=== PATIENT | male | born 1945 | race Caucasian/White ===

== ENCOUNTER 2017-08-17 11:31 | Outpatient (CLI) | payer MEDICARE ==
[2017-08-17 12:52] LABS: Hematocrit 41.8 % (42.0-52.0); Mean Platelet Volume 6.6 fL (7.4-10.4); Red Blood Cell (RBC) Count 4.39 mill/uL (4.70-6.10); White Blood Cell (WBC) Count 6.6 thou/uL (4.8-10.8)
[2017-08-17 12:56] LABS: PTT 27.6 SEC (22.9-36.1)
[2017-08-17 13:23] LABS: Anion Gap 16 mmol/L (10-20); BUN (Urea Nitrogen) 11 mg/dL (8.4-25.7); Calc. Creatinine Clearance 0 mL/min (70-130); Calcium 10.3 mg/dL (7.8-10.44); Carbon Dioxide 25 mmol/L (23-31); Chloride 101 mmol/L (98-107); Estimated GFR-MDRD 68
== END 2017-08-17 11:32 | disposition home or self-care (01) ==
LOC: LABBT 11:31
PROVIDERS: ATTEND Internal Medicine Cardiovascular Disease
DX: Z01.812 Encounter for preprocedural laboratory examination (principal)
CPT/HCPCS: 80048; 85027; 85610; 85730

== ENCOUNTER 2017-08-21 05:48 | Inpatient (IN) | payer MEDICARE ==
[~2017-08-21 05:48] MED LIST: Iopamidol 370 76% 100 ML VIAL ONE
[2017-08-21] MEDS ORDERED: Heparin 1000 UNIT/NS 500ML(OR) 1,000 ML ONE (07:40)
[2017-08-21] MEDS ORDERED: Diazepam 5 MG TAB ONE (08:00)
[2017-08-21] MEDS ORDERED: Midazolam HCl 2 mg/2 ml Vial ONE (08:15)
[2017-08-21] MEDS ORDERED: Fentanyl 100 MCG/2 ML VIAL ONE (08:15)
[2017-08-21] MEDS ORDERED: Nitroglycerin 2% Ointment 1 INCH/1 GM Packet ONE (08:28)
[2017-08-21] MEDS ORDERED: Acetaminophen/Codeine 30-300mg Tablet PO PRN ×2 (10:24)
[2017-08-21] MEDS ORDERED: traMADol HCl 50 MG TAB PO PRN (10:24)
[2017-08-21] MEDS ORDERED: Sodium Chloride 0.9% 1,000 ML IV SCH (10:24)
[2017-08-21] MEDS ORDERED: Nitroglycerin 0.4 MG TAB (25 Tab Bottle) SL PRN (10:24)
[2017-08-21] MEDS ORDERED: cloNIDine 0.1 MG TAB PO PRN (10:31)
[2017-08-21] MEDS ORDERED: Diazepam 5 MG TAB PO PRN (11:42)
[2017-08-21] MEDS ORDERED: Communication Order-Pharmacy FS SCH (11:42)
--- NOTE | 2017-08-21 14:36 | RAD ---
PORTABLE AP CHEST: Date: 08-21-17 History: Pre-operative evaluation prior to CABG. Comparison: None available. FINDINGS: Cardiac silhouette and pulmonary vasculature are within normal limits for portable technique of the darcie mirza. Lungs are clear. Osseous structures are intact. IMPRESSION: No acute cardiopulmonary process. POS: TAMRA
--- NOTE | 2017-08-21 15:15 | CON ---
DATE OF CONSULTATION: 08/21/2017 Chart reviewed/patient examined/films reviewed. HISTORY OF PRESENT ILLNESS: Mr. Judd is a 72-year-old gentleman admitted with angina. He underwen t cardiac catheterization revealing severe 3-vessel disease. Ejection fraction is approximately 55%. I have been asked to see him to discuss coronary artery bypass grafting. The potential targets inc lude LAD, OM, and distal right coronary artery. PAST MEDICAL HISTORY: 1. Coronary artery disease. 2. History of reflux status post hiatal hernia repair. 3. Hypertension. 4. Hyperlipidemia. PAST SURGICAL HISTORY: 1. Cholecystectomy. 2. Hiatal hernia repair. 3. Extensive skin cancer resection from the left side of his head at [facility]. HOME MEDICATIONS: 1. Aspirin 325 mg daily. 2. Catapres 0.1 mg daily. 3. Crestor 10 mg at bedtime. 4. Coreg 3.125 mg b.i.d. 5. Zantac 150 mg at bedtime. 6. Diovan HCT 1 q.a.m. 7. Nexium 40 mg q.a.m. 8. HCTZ 25 mg b.i.d. ALLERGIES: None. SOCIAL HISTORY: He does not use tobacco. He drinks approximately 4 beers a day - he prefers [employer]. He is and accompanied by his . REVIEW OF SYSTEMS: Ten point review of systems is performed and it is negative except as above. PHYSICAL EXAMINATION: GENERAL: This is a well-developed, well-nourished male in no acute distress. VITAL SIGNS: Height 5 feet 6 inches, weight 200 pounds, 2.06, heart rate is 80 and regular, bl ood pressure is 150/66. HEENT: Sclerae nonicteric. Pupils are equal and round bilaterally. NECK: Supple without bruit. CHEST: Clear bilaterally. HEART: Rhythm is regular without murmur. ABDOMEN: Soft, nontender. EXTREMITIES: No cyanosis, clubbing or edema. LUNGS: There are some varicosities over both calves. VASCULAR: Palpable carotid, radial, femoral, and dorsalis pedis pulses bilaterally. PSYCHIATRIC: Patient is awake, alert, oriented to person, place, and time. LABORATORY DATA: Of note, hemoglobin 14.1, platelet count is 223, potassium is 4.4, creatinine is 1. 4. PT/INR is 1.0. PTT is 27.6. ASSESSMENT AND PLAN: This is a pleasant 72-year-old gentleman with severe 3-vessel disease and prese rved left ventricular function. Risks, benefits, and options of coronary artery bypass grafting have been discussed. Planned for surgery tomorrow. The patient has been consented and signed.
[2017-08-21] MEDS ORDERED: Iopamidol 370 76% 100 ML VIAL ONE (17:28)
[2017-08-21] MEDS ORDERED: Famotidine 20 MG TAB PO SCH (21:00)
[2017-08-22] MEDS ORDERED: CEFAZOLIN/Water 2 GM/20 ML SYRINGE SLOW IVP SCH (04:00)
[2017-08-22] MEDS ORDERED: Clindamycin 2% Cream 40 gm Tube ONE (06:18)
[2017-08-22] MEDS ORDERED: Heparin 5,000 UNITS/ML VIAL ONE ×2 (06:25→07:04)
[2017-08-22] MEDS ORDERED: CEFAZOLIN/Water 2 GM/20 ML SYRINGE ONE (06:32)
[2017-08-22] MEDS ORDERED: Fentanyl 250 MCG/5 ML VIAL ONE ×2 (06:41)
[2017-08-22] MEDS ORDERED: Midazolam HCl 5 mg/5 ml Vial ONE (06:42)
[2017-08-22] MEDS ORDERED: Heparin 10,000 UNITS/1 ML VIAL 30,000 UNITS in Sodium Chloride 0.9% 1,000 ML FS SCH (06:45)
[2017-08-22] MEDS ORDERED: Aspirin 81 mg Enteric Coated Tablet PO SCH (09:00)
[2017-08-22] MEDS ORDERED: Carvedilol 3.125 MG TAB PO SCH (09:00)
[2017-08-22] MEDS ORDERED: Hydrochlorothiazide 25 MG TAB PO SCH ×2 (09:00)
[2017-08-22] MEDS ORDERED: Valsartan 80 MG TAB PO SCH (09:00)
[2017-08-22] MEDS ORDERED: Bisacodyl 5 MG TAB PO PRN (11:08)
[2017-08-22] MEDS ORDERED: Guaifenesin DM 100-10/5 ML UDCUP PO PRN (11:08)
[2017-08-22] MEDS ORDERED: Potassium Chloride 20 MEQ/100 ML PREMIX BAG IVPB PRN (11:08)
[2017-08-22] MEDS ORDERED: Promethazine HCl 25 MG/ML VIAL IM PRN (11:08)
[2017-08-22] MEDS ORDERED: HYDROcodone/Acetaminophen 5/325 mg Tablet PO PRN (11:08)
[2017-08-22] MEDS ORDERED: Magnesium 2 GM/NS 0.9% 100 ML 2 GM in Premix Bag 1 BAG IVPB SCH (11:08)
[2017-08-22] MEDS ORDERED: Post-Op Insulin Drip Protocol IVPB ONE (11:08)
[2017-08-22] MEDS ORDERED: Acetaminophen 325 MG TAB PO PRN (11:08)
[2017-08-22] MEDS ORDERED: Mag-Al 1200 mg/1200 mg/30 ML UDCUP PO PRN (11:08)
[2017-08-22] MEDS ORDERED: Norepinephrine 8 MG/0.9% NS 250 ML IVPB PRN (11:08)
[2017-08-22] MEDS ORDERED: hydrALAZINE 20 MG/ML VIAL SLOW IVP PRN (11:08)
[2017-08-22] MEDS ORDERED: Fentanyl 100 MCG/2 ML VIAL SLOW IVP PRN (11:08)
[2017-08-22] MEDS ORDERED: Nitroglycerin 50 MG/250 ML BOT 250 ML IVPB PRN (11:08)
[2017-08-22] MEDS ORDERED: Hetastarch 6% 500 ML 500 ML IVPB PRN (11:08)
[2017-08-22] MEDS ORDERED: Bisacodyl 10 MG SUPP PR PRN (11:08)
[2017-08-22] MEDS ORDERED: D5 1/2 NS w/20 mEq KCL 1,000 ML IV SCH (11:08)
--- NOTE | 2017-08-22 11:15 | OP ---
DATE OF PROCEDURE: 08/22/2017 PREOPERATIVE DIAGNOSES: Coronary artery mellitus/hypertension/hyperlipidemia. POSTOPERATIVE DIAGNOSES: Coronary artery mellitus/hypertension/hyperlipidemia. PROCEDURES: Coronary artery bypass grafting x3 - 1. Left internal mammary artery to 1.5 mm mid LAD - good conduit and small target. 2. Reverse saphenous vein to 1.0 mm OM - good conduit and small target. 3. Reverse saphenous vein to 1.5 mm RCA, good conduit with diffuse posterior plaquing of the target. SURGEONS: Finn Tirado M.D. and Akil Calderon M.D. ANESTHESIA: General endotracheal - Yohannes Gan M.D. PUMP TIME: 68 minutes. CROSS-CLAMP TIME: 33 minutes. LOW CORE TEMPERATURE: 32 degrees Celsius. RHIT: Destiney Mckeon. DRAINS: 24-[place] chest tubes x3. DRIPS: None. TRANSFUSIONS: None. DESCRIPTION OF PROCEDURE: After operative consent was obtained, the patient was brought to the operating room and placed in the supine position on the operating room table. Appropriate anesthetic monitor was placed and general endotracheal anesthesia induced. Chest, abdomen, and legs were prepped and draped in usual sterile fashion. Greater saphenous vein was harvested from the left lower extremity using an endoscopic technique from the thigh to upper calf. Wounds were irrigated and closed in layers. Median sternotomy was performed. Left internal mammary artery was harvested as a pedicle graft. The patient was systemically heparinized. Distal pedicle was divided and infused with papaverine. Thymic fat and pericardium were divided with electrocautery. Pericardial stay sutures were placed. Aortic and atrial cannulation was performed. After adequate heparinization, retrograde prime was performed. The patient was then placed on cardiopulmonary bypass. Distal targets were marked. Aortic cross-clamp was applied and antegrade sanguinous cardioplegic arrest obtained. One liter of antegrade cold [place] cardioplegia was given. Topical cold solution was used. Reversed saphenous vein was anastomosed to the distal RCA in end-to-side fashion with running 7-0 Prolene suture. Anastomosis was tested and was hemostatic. Reversed saphenous vein was anastomosed to the OM in end-to-side fashion with running 7-0 Prolene suture. Anastomosis was tested and was hemostatic. Mammary artery was brought through a window in the pericardium and anastomosed to the LAD in end-to-side fashion with running 7-0 Prolene suture. On release of the mammary clamp, there was good hooding in the anastomosis and good distal flow. Pedicle was secured with interrupted 6-0 Prolene suture. Cross-clamp was removed and partial occluding clamp placed. Saphenous vein to the right coronary was anastomosed to aortic root. Saphenous vein to the OM was anastomosed to the huertas of the right coronary graft. Partial occluding clamp was removed and grafts deaired. Anastomoses were inspected for hemostasis, which was good. The patient was warmed and weaned from cardiopulmonary bypass. After resumption of sinus rhythm, good hemodynamics, and temperature greater than 36.5, bypass was discontinued. Transfusions were given. Decanulation was performed and purse string sutures secured. Aortic site was reinforced with vein pledgeted 4-0 prolene. Venous cannulation site was reinforced with 4-0 prolene suture. Protamine was administered. Twenty-four [place] chest tubes were placed in the mediastinum x3. Vancomycin paste was placed on the sternal edges. After adequate hemostasis had been obtained, the sternum was closed with #7 wire. Sternum was treated with platelet-rich plasma and wires twisted. Wounds were irrigated, treated with platelet-poor plasma, and closed in multiple layers. Dermabond was applied to all skin incisions. The patient tolerated the procedure well, and was transferred to the intensive care unit in stable, but critical condition. SARI
[2017-08-22] MEDS ORDERED: Dextrose 50% Abboject 50 ML SYRINGE SLOW IVP PRN (11:24)
[2017-08-22] MEDS ORDERED: Dextrose 5% in Water 1,000 ML IV PRN (11:24)
[2017-08-22 11:25] LABS: Oxyhemoglobin 95.4 % (94.0-97.0); Sodium 137 mmol/L (135-148)
[2017-08-22 11:27] LABS: Mechanical Tidal Volume 500 ml; Mode PSIMV; Modified Allen's Test NOT DONE; Pressure Support 10 cmH2O; Vent YES
[2017-08-22 11:28] LABS: #Eosinphils 0.1 thou/uL (0.0-0.7); #Lymphocytes 1.5 thou/uL (1.20-3.40); #Monocytes 0.6 thou/uL (0.11-0.59); #Neutrophils 10.6 thou/uL (1.40-6.50); %Basophils 0.1 % (0.0-1.0); %Eosinophils 0.7 % (0.0-10.0); %Lymphocytes 11.8 % (21.0-51.0); Hematocrit 32.2 % (42.0-52.0); Mean Platelet Volume 6.5 fL (7.4-10.4); Red Blood Cell (RBC) Count 3.31 mill/uL (4.70-6.10); White Blood Cell (WBC) Count 12.9 thou/uL (4.8-10.8)
[2017-08-22 11:41] LABS: PTT 28.2 SEC (22.9-36.1); Prothrombin Time 16.7 SEC (12.0-14.7)
[2017-08-22] MEDS: Fentanyl 100 MCG/2 ML VIAL SLOW IVP PRN (11:41)
[2017-08-22] MEDS: Ketorolac Tromethamine 30 MG/ML VIAL IVP SCH ×3 (11:42→23:30)
[2017-08-22] MEDS: Ondansetron HCl/PF 4 MG/2 ML Vial IVP PRN (11:53)
[2017-08-22 11:54] LABS: Anion Gap 12 mmol/L (10-20); BUN (Urea Nitrogen) 8 mg/dL (8.4-25.7); Calc. Creatinine Clearance 98 mL/min (70-130); Calcium 8.4 mg/dL (7.8-10.44); Carbon Dioxide 19 mmol/L (23-31); Chloride 109 mmol/L (98-107); Estimated GFR-MDRD 89
--- NOTE | 2017-08-22 13:11 | RAD ---
ONE VIEW CHEST: HISTORY: Status post open heart surgery. COMPARISON: 08/21/2017 FINDINGS: Portable semi-upright chest demonstrates an endotracheal tube, a right-sided central venous catheter, a mediastinal drainage catheter, and a right-sided chest tube. Sternotomy wires are noted. Lung vo lumes are diminished. A left-sided chest tube is also noted. No pneumothorax. IMPRESSION: Findings compatible with recent open heart surgery. POS: TAMRA
[2017-08-22] MEDS: Insulin Regular 300 UNITS/3 ML VIAL SC PRN ×4 (13:39→23:57)
[2017-08-22] MEDS: CEFAZOLIN/Water 2 GM/20 ML SYRINGE SLOW IVP SCH ×2 (14:36→23:29)
[2017-08-22 14:39] LABS: Oxyhemoglobin 96.1 % (94.0-97.0); Sodium 138 mmol/L (135-148)
[2017-08-22 14:40] LABS: Modified Allen's Test NOT DONE; Pressure Support 10 cmH2O; Vent YES
[2017-08-22 14:41] LABS: Mode CPAP
[2017-08-22 16:58] LABS: Hematocrit 33.1 % (42.0-52.0)
[2017-08-22 17:04] VITALS: BMI 33.6
[2017-08-22] MEDS ORDERED: ePHEDrine/0.9% NaCl/PF SYRINGE 50 mg/10 ml ONE (18:27)
[2017-08-22] MEDS ORDERED: Sterile Water 10 ML VIAL ONE (18:27)
[2017-08-22] MEDS ORDERED: Aminocaproic Acid 5 GM/20 ML VIAL ONE (18:27)
[2017-08-22] MEDS ORDERED: Nitroglycerin 50 MG/250 ML BOT ONE (18:27)
[2017-08-22] MEDS ORDERED: PHENYLEPHRINE-NS 100 MCG/ML 10 ML SYRINGE ONE (18:27)
[2017-08-22] MEDS ORDERED: Protamine Sulfate 250 MG/25 ML VIAL ONE (18:27)
[2017-08-22] MEDS ORDERED: CEFAZOLIN 1 GM VIAL ONE (18:27)
[2017-08-22] MEDS ORDERED: Propofol 200 MG/20 ML VIAL ONE (18:27)
[2017-08-22] MEDS ORDERED: Lidocaine 1% PF 5 ML VIAL ONE (18:27)
[2017-08-22] MEDS ORDERED: Heparin 30,000 units/30 ml VIAL ONE (18:27)
[2017-08-22] MEDS: Famotidine/PF 20 mg/2ml Vial SLOW IVP SCH (20:42)
[2017-08-23] MEDS: Fentanyl 100 MCG/2 ML VIAL SLOW IVP PRN (02:30)
[2017-08-23] MEDS: Insulin Regular 300 UNITS/3 ML VIAL SC PRN ×2 (03:40→08:30)
[2017-08-23 04:28] LABS: #Lymphocytes 1.1 thou/uL (1.20-3.40); #Monocytes 0.7 thou/uL (0.11-0.59); #Neutrophils 7.4 thou/uL (1.40-6.50); %Basophils 0.1 % (0.0-1.0); %Eosinophils 0.2 % (0.0-10.0); %Lymphocytes 12.2 % (21.0-51.0); %Monocytes 7.5 % (0.0-10.0); Hematocrit 26.1 % (42.0-52.0); Red Blood Cell (RBC) Count 2.67 mill/uL (4.70-6.10); White Blood Cell (WBC) Count 9.3 thou/uL (4.8-10.8)
[2017-08-23 04:51] LABS: Anion Gap 11 mmol/L (10-20); BUN (Urea Nitrogen) 14 mg/dL (8.4-25.7); Calc. Creatinine Clearance 67 mL/min (70-130); Calcium 7.7 mg/dL (7.8-10.44); Carbon Dioxide 22 mmol/L (23-31); Chloride 109 mmol/L (98-107); Estimated GFR-MDRD 53
[2017-08-23] MEDS: Ketorolac Tromethamine 30 MG/ML VIAL IVP SCH ×4 (06:11→23:34)
[2017-08-23] MEDS: CEFAZOLIN/Water 2 GM/20 ML SYRINGE SLOW IVP SCH (06:12)
[2017-08-23] MEDS: Magnesium 2 GM/NS 0.9% 100 ML 2 GM in Premix Bag 1 BAG IVPB SCH (07:51)
[2017-08-23] MEDS: Famotidine/PF 20 mg/2ml Vial SLOW IVP SCH ×2 (07:51→21:07)
[2017-08-23] MEDS: Aspirin 325 MG TAB PO SCH (07:51)
[2017-08-23] MEDS: Ondansetron HCl/PF 4 MG/2 ML Vial IVP PRN (09:08)
[2017-08-23] MEDS: HYDROcodone/Acetaminophen 5/325 mg Tablet PO PRN ×4 (09:17→23:35)
[2017-08-23] MEDS ORDERED: Furosemide 40 MG/4 ML VIAL SLOW IVP SCH (09:30)
[2017-08-23] MEDS ORDERED: Furosemide 20 MG/2 ML VIAL SLOW IVP SCH (10:00)
--- NOTE | 2017-08-23 11:14 | RAD ---
PORTABLE AP CHEST: Date: 08/23/17 HISTORY: Post open heart surgery. COMPARISON: 08/22/17. FINDINGS: Endotracheal tube has been removed. The right-sided thoracostomy tube and mediastinal drain are stabl e in position. Right subclavian central venous catheter is unchanged in position. This exam is obtain ed at shallow depth inspiration which accentuates the cardiac silhouette and bronchovascular markings . There is atelectasis at the left lung base. Median sternotomy wires and findings likely related to CABG are again present. No other interval change. IMPRESSION: 1. Suboptimal depth of inspiration accentuating the bronchovascular markings and cardiac silhouette. There is probable atelectasis at the left lung base. 2. Removal of the endotracheal tube. Remaining lines and tubes are stable in position. POS: YESENIA
[2017-08-23] MEDS: Metoclopramide HCl 10 MG/2 ML VIAL IVP SCH ×2 (14:05→21:07)
[2017-08-23] MEDS: Carvedilol 3.125 MG TAB PO SCH (16:05)
[2017-08-24 04:44] LABS: #Eosinphils 0.1 thou/uL (0.0-0.7); #Lymphocytes 1.2 thou/uL (1.20-3.40); #Monocytes 0.9 thou/uL (0.11-0.59); #Neutrophils 9.3 thou/uL (1.40-6.50); %Basophils 0.2 % (0.0-1.0); %Eosinophils 0.7 % (0.0-10.0); %Lymphocytes 10.4 % (21.0-51.0); %Monocytes 7.8 % (0.0-10.0); Hematocrit 25.1 % (42.0-52.0); Mean Platelet Volume 6.8 fL (7.4-10.4); Red Blood Cell (RBC) Count 2.54 mill/uL (4.70-6.10); White Blood Cell (WBC) Count 11.4 thou/uL (4.8-10.8)
[2017-08-24 05:31] LABS: Anion Gap 9 mmol/L (10-20); BUN (Urea Nitrogen) 22 mg/dL (8.4-25.7); Calc. Creatinine Clearance 40 mL/min (70-130); Calcium 8.1 mg/dL (7.8-10.44); Carbon Dioxide 23 mmol/L (23-31); Chloride 106 mmol/L (98-107); Estimated GFR-MDRD 30
[2017-08-24] MEDS: HYDROcodone/Acetaminophen 5/325 mg Tablet PO PRN ×4 (06:06→23:51)
[2017-08-24] MEDS: Ketorolac Tromethamine 30 MG/ML VIAL IVP SCH (06:07)
[2017-08-24] MEDS: Metoclopramide HCl 10 MG/2 ML VIAL IVP SCH (06:07)
[2017-08-24] MEDS: Carvedilol 3.125 MG TAB PO SCH ×2 (07:23→16:52)
[2017-08-24] MEDS: Aspirin 325 MG TAB PO SCH (08:05)
[2017-08-24] MEDS: Famotidine/PF 20 mg/2ml Vial SLOW IVP SCH (08:05)
[2017-08-24] MEDS: Magnesium 2 GM/NS 0.9% 100 ML 2 GM in Premix Bag 1 BAG IVPB SCH (08:06)
--- NOTE | 2017-08-24 09:56 | RAD ---
UPRIGHT PORTABLE CHEST ONE VIEW: History: 72-year-old male for post op open heart follow up evaluation. FINDINGS: Post underlying sternotomy. Chest tubes and right central line are in place. No pneumothorax. Minimal fullness of the cardiomediastinal shadow. Poor inspiration with some increased markings in the bases , probably post op changes. No significant new process. IMPRESSION: Stable post-operative changes. No pneumothorax or other significant acute process. POS: TAMRA
[2017-08-24] MEDS ORDERED: Zolpidem Tartrate 5 MG TAB PO PRN (10:38)
[2017-08-24] MEDS ORDERED: Nitroglycerin 0.4 MG TAB 1 EACH SL PRN (10:38)
[2017-08-24] MEDS ORDERED: Guaifenesin DM 100-10/5 ML UDCUP PO PRN (10:38)
[2017-08-24] MEDS ORDERED: Acetaminophen 325 MG TAB PO PRN (10:38)
[2017-08-24] MEDS ORDERED: Mag-Al 1200 mg/1200 mg/30 ML UDCUP PO PRN (10:38)
[2017-08-24] MEDS ORDERED: Artificial Tears 18 DROP/0.9 ML EA EYE PRN (10:38)
[2017-08-24] MEDS ORDERED: diphenhydrAMINE 25 MG CAP PO PRN (10:38)
[2017-08-24] MEDS ORDERED: Bisacodyl 10 MG SUPP PR PRN (10:38)
[2017-08-24] MEDS ORDERED: Bisacodyl 5 MG TAB PO PRN (10:38)
[2017-08-24] MEDS ORDERED: Ondansetron HCl/PF 4 MG/2 ML Vial IVP PRN (10:38)
[2017-08-24] MEDS ORDERED: Mineral Oil ENEMA PR PRN (10:38)
[2017-08-24] MEDS ORDERED: Milk Of Magnesia 30 ML UDCUP PO PRN (10:38)
[2017-08-24] MEDS ORDERED: Fentanyl 100 MCG/2 ML VIAL SLOW IVP PRN (10:38)
--- NOTE | 2017-08-24 14:10 | PRG ---
DATE OF SERVICE: 08/24/2017 SUBJECTIVE: Mr. Judd is doing well. Chest tube has been discontinued. He has been sitting up in a chair. PHYSICAL EXAMINATION: VITAL SIGNS: Blood pressure 131/64, pulse 63, respirations 20. LUNGS: Clear to auscultation. HEART: Regular rate and rhythm. ABDOMEN: Soft, nontender and nondistended. EXTREMITIES: No edema. PERTINENT LABORATORY DATA: Creatinine 2.19, which is up from 1.32, hemoglobin 8.5. IMPRESSION: 1. Coronary artery disease status post bypass surgery. 2. Acute on chronic renal insufficiency. RECOMMENDATIONS: Chest tube is removed. We would recommend rehab. I have discontinued Toradol and decrease aspirin 81 q.a.m. We will repeat his creatinine in a.m. He is on beta-sonya therapy and statin treatment. We will continue.
[2017-08-24] MEDS ORDERED: Famotidine 20 MG TAB PO SCH (21:00)
[2017-08-25 06:21] LABS: Anion Gap 10 mmol/L (10-20); BUN (Urea Nitrogen) 29 mg/dL (8.4-25.7); Calc. Creatinine Clearance 47 mL/min (70-130); Calcium 8.3 mg/dL (7.8-10.44); Carbon Dioxide 22 mmol/L (23-31); Chloride 101 mmol/L (98-107); Estimated GFR-MDRD 35
[2017-08-25] MEDS: Aspirin 325 MG TAB PO SCH (08:25)
[2017-08-25] MEDS: Carvedilol 3.125 MG TAB PO SCH ×2 (08:27→16:08)
[2017-08-25] MEDS: Famotidine 20 MG TAB PO SCH (08:28)
[2017-08-25] MEDS: HYDROcodone/Acetaminophen 5/325 mg Tablet PO PRN ×2 (08:33→17:40)
[2017-08-25] MEDS ORDERED: Magnesium Citrate 300 ML BOT PO PRN (13:57)
--- NOTE | 2017-08-25 16:49 | PDOC.CTH ---
Cardiology Progress Note - Subjective he is doing well. No chest pain. Working with [employer] Has not had a BM yet but received a cathartic and feels it is coming soon. He has been passing gas. - Objective Vital Signs Temp Pulse Pulse Pulse Resp BP BP 08/25/17 12:49 60 53 L 125/75 132/60 08/25/17 11:34 99.3 F 54 L 17 08/25/17 09:14 64 64 108/57 L 134/65 08/25/17 08:22 98.8 F 63 20 BP Pulse Ox Pulse Ox Pulse Ox 08/25/17 12:49 100 98 08/25/17 11:34 126/64 98 08/25/17 09:14 100 100 08/25/17 08:22 134/58 L 97 Weight 206 lb 08/24/17 08/25/17 08/26/17 06:59 06:59 06:59 Intake Total 1211 2500 720 Output Total 1182 655 680 Balance 29 1845 40 - Physical Examination General/Neuro: alert & oriented x3, NAD Neck: no JVD present Lungs: CTA, unlabored respirations Heart: RRR Abdomen: NT/ND Extremities: + edema B (1+) - Telemetry Telemetry Rhythm: NSR - Labs Result Diagrams: 08/24/17 03:55 08/25/17 05:12 - Assessment/Plan 1. Multivessel CAD 2. S/p CABG 3. Acute kidney injury, improving. PLAN: - Continue to avoid hypotension and nephrotoxic agents. - Continue Aspirin 81 and statin. - Continue low dose BB, continue to hold on ACEI due to CATIA.
[2017-08-26] MEDS: HYDROcodone/Acetaminophen 5/325 mg Tablet PO PRN (03:39)
[2017-08-26 06:30] LABS: Anion Gap 9 mmol/L (10-20); BUN (Urea Nitrogen) 32 mg/dL (8.4-25.7); Calc. Creatinine Clearance 51 mL/min (70-130); Calcium 8.7 mg/dL (7.8-10.44); Carbon Dioxide 22 mmol/L (23-31); Chloride 102 mmol/L (98-107); Estimated GFR-MDRD 40
[2017-08-26 07:14] VITALS: TEMP 97.9
[2017-08-26] MEDS ORDERED: Furosemide 40 MG TAB PO SCH (07:30)
[2017-08-26] MEDS: Carvedilol 3.125 MG TAB PO SCH (08:02)
[2017-08-26] MEDS: Famotidine 20 MG TAB PO SCH (08:02)
--- NOTE | 2017-08-26 08:44 | EKG ---
Test Reason : POST CABG Blood Pressure : / mmHG Vent. Rate : 066 BPM Atrial Rate : 066 BPM P-R Int : 186 ms QRS Dur : 096 ms QT Int : 444 ms P-R-T Axes : 042 -44 060 degrees QTc Int : 465 ms Normal sinus rhythm Left axis deviation Inferior infarct , age undetermined Abnormal ECG No previous ECGs available Confirmed by Gerald PANDEY ([id number]) on 08/26/2017 8:43:30 AM Referred By: Doe MERCADO Confirmed By:Gerald PANDEY
[2017-08-26] MEDS ORDERED: Aspirin 81 mg Enteric Coated Tablet PO SCH (09:00)
[2017-08-26 11:02] VITALS: BP 119/64
--- NOTE | 2017-08-26 15:35 | DIS ---
DATE OF ADMISSION: 08/21/2017 DATE OF DISCHARGE: 08/26/2017 DIAGNOSES: 1. Coronary artery disease. 2. Hyperlipidemia. 3. Hypertension. 4. Gastroesophageal reflux disease, status post hiatal hernia repair. PROCEDURES: 1. Cardiac catheterization. 2. Coronary artery bypass grafting x3 -- 1 left internal mammary artery to LAD. 3. Reversed saphenous vein to OM. 4. Reversed saphenous vein to distal RCA. DESCRIPTION OF HOSPITAL STAY: Mr. Judd underwent an elective cardiac catheterization for angina. He was found to have severe 3-vessel disease with an ejection fraction of approximately 55%. He was taken to the operating room on 08/22/2017 and underwent coronary artery bypass grafting as above. Po stoperatively, he has done well. He has had no rhythm disturbances. At the time of discharge, he is ambulatory, tolerating a regular diet. He has mild edema. Incisions are clean and dry without evid ence of infection. DISCHARGE MEDICATIONS: 1. Aspirin 81 mg daily. 2. Crestor 20 mg at bedtime. 3. Zantac 150 mg at bedtime. 4. HCTZ 12.5 mg b.i.d. 5. Lasix 40 mg every day. 6. Coreg 3.125 mg b.i.d. Follow up is with me in 2 weeks, Dr. Azar in a month, and Dr. Anglin per his usual schedule.
[2017-08-28 09:46] LABS: Oxyhemoglobin 97.9 % (94.0-97.0); Sodium 139 mmol/L (135-148)
[2017-08-28 09:46] LABS: Base Excess -0.8 mEq/L (0 (+/- 2.5)); O2 Content (venous) 10.4 VOL% (12.5-17.5); pH (venous) 7.37 (7.35-7.45)
[2017-08-28 09:46] LABS: Oxyhemoglobin 98.1 % (94.0-97.0); Sodium 140 mmol/L (135-148)
[2017-08-28 09:48] LABS: Oxyhemoglobin 97.8 % (94.0-97.0); Sodium 136 mmol/L (135-148)
[2017-08-28 09:49] LABS: Sodium 135 mmol/L (135-148)
[2017-08-29 07:54] LABS: Mode OR ABG; Vent YES
[2017-08-29 07:54] LABS: Vent YES
[2017-08-29 07:55] LABS: Mode OR ABG; Vent YES
[2017-08-29 07:55] LABS: Mode OR ABG
[2017-08-29 07:56] LABS: Mode OR ABG; Vent YES
== END 2017-08-26 10:08 | disposition home or self-care (01) | DRG 234 ==
LOC: CCL 05:48 → 2NO 12:05 → CCU 08-22 07:28 → 2NO 08-24 13:23
PROVIDERS: ADMIT Internal Medicine Cardiovascular Disease; ATTEND Internal Medicine Cardiovascular Disease
PROC: 4A023N7 Measurement of Cardiac Sampling and Pressure, Left Heart, Percutaneous Approach (ICD-10-PCS; 2017-08-21)
PROC: B2111ZZ Fluoroscopy of Multiple Coronary Arteries using Low Osmolar Contrast (ICD-10-PCS; 2017-08-21)
PROC: B2151ZZ Fluoroscopy of Left Heart using Low Osmolar Contrast (ICD-10-PCS; 2017-08-21)
PROC: 02100Z9 Bypass Coronary Artery, One Artery from Left Internal Mammary, Open Approach (ICD-10-PCS; principal; 2017-08-22)
PROC: 021109W Bypass Coronary Artery, Two Arteries from Aorta with Autologous Venous Tissue, Open Approach (ICD-10-PCS; 2017-08-22)
PROC: 06BQ4ZZ Excision of Left Saphenous Vein, Percutaneous Endoscopic Approach (ICD-10-PCS; 2017-08-22)
PROC: 5A1221Z Performance of Cardiac Output, Continuous (ICD-10-PCS; 2017-08-22)
PROC: B24BZZ4 Ultrasonography of Heart with Aorta, Transesophageal (ICD-10-PCS; 2017-08-22)
DX: I25.10 Atherosclerotic heart disease of native coronary artery without angina pectoris (principal); N17.9 Acute kidney failure, unspecified; I10 Essential (primary) hypertension; E78.5 Hyperlipidemia, unspecified; K21.9 Gastro-esophageal reflux disease without esophagitis; R94.39 Abnormal result of other cardiovascular function study; E78.00 Pure hypercholesterolemia, unspecified; I73.9 Peripheral vascular disease, unspecified
CPT/HCPCS: 36415; 36416; 71010; 76942; 80048; 82805; 85025; 85610; 85730; 86850; 86900; 86901; 93005; 93010; 93458; 93798; 94002; 99152; 99153; A4216; C1769; J0690; J1642; J1644; J1815; J1885; J1940; J2001; J2250; J2405; J2704; J2720; J2765; J3010; J3475; J3480; J7050; P9045; S0017; S0028

== ENCOUNTER 2017-09-30 09:18 | Inpatient (IN) | payer MEDICARE ==
[2017-09-30] MEDS ORDERED: Ondansetron HCl/PF 4 MG/2 ML Vial ONE (10:10)
[2017-09-30 10:24] LABS: #Eosinphils 0.1 thou/uL (0.0-0.7); #Lymphocytes 1.2 thou/uL (1.20-3.40); #Monocytes 1.3 thou/uL (0.11-0.59); #Neutrophils 7.7 thou/uL (1.40-6.50); %Basophils 0.1 % (0.0-1.0); %Eosinophils 0.5 % (0.0-10.0); %Lymphocytes 11.9 % (21.0-51.0); %Monocytes 12.6 % (0.0-10.0); %Neutrophils 74.9 % (42.0-75.0); Hemoglobin 9.5 g/dL (14.0-18.0); Mean Corpuscular Hemoglobin 29.7 pg (27.0-31.0); Mean Corpuscular Volume 89.9 fl (80.0-94.0); Mean Platelet Volume 6.4 fL (7.4-10.4); Platelet Count 283 thou/uL (130-400); RBC Distribution Width 12.7 % (11.5-14.5); Red Blood Cell (RBC) Count 3.22 mill/uL (4.70-6.10); White Blood Cell (WBC) Count 10.3 thou/uL (4.8-10.8)
[2017-09-30 10:48] LABS: ALT (SGPT) 23 U/L (8-55); AST (SGOT) 35 U/L (5-34); Albumin 3.4 g/dL (3.4-4.8); Alkaline Phosphatase 76 U/L (40-150); Anion Gap 19 mmol/L (10-20); BUN (Urea Nitrogen) 36 mg/dL (8.4-25.7); Bilirubin, Total 0.6 mg/dL (0.2-1.2); CK (CPK) 128 U/L (30-200); Calc. Creatinine Clearance 0 mL/min (70-130); Calcium 9.7 mg/dL (7.8-10.44); Carbon Dioxide 30 mmol/L (23-31); Chloride 87 mmol/L (98-107); Estimated GFR-MDRD 36; Globulin 3.1 g/dL (2.4-3.5); Glucose 96 mg/dL (83-110); Lipase 15 U/L (8-78); Protein, Total 6.5 g/dL (5.8-8.1); Sodium 134 mmol/L (136-145)
[2017-09-30 10:51] LABS: Potassium 2.2 mmol/L (3.5-5.1)
[2017-09-30 10:53] LABS: CKMB 0.4 ng/mL (0-6.6); Troponin I 0.039 ng/mL (< 0.028)
[2017-09-30] MEDS ORDERED: D5 1/2 NS w/20 mEq KCL 1,000 ML IV SCH (11:00)
--- NOTE | 2017-09-30 11:40 | RAD ---
PORTABLE CHEST 1 VIEW: DATE: 09/30/17. TIME: 11:02 a.m. HISTORY: Chest pain. Nausea and vomiting. FINDINGS: Comparison is made with the exam of 08/24/17. There are changes of median sternotomy. The heart size is borderline. No confluent areas of consoli dation, pneumothorax, renaldo pulmonary edema, or pleural effusions are seen. IMPRESSION: No acute process. POS: H
[2017-09-30 14:23] LABS: Troponin I 0.052 ng/mL (< 0.028)
[2017-09-30] MEDS ORDERED: hydrALAZINE 20 MG/ML VIAL SLOW IVP PRN (15:39)
[2017-09-30] MEDS ORDERED: Acetaminophen 650 MG Suppository PR PRN (15:39)
[2017-09-30] MEDS ORDERED: Ondansetron HCl/PF 4 MG/2 ML Vial IVP PRN (15:39)
[2017-09-30] MEDS ORDERED: Metoclopramide HCl 10 MG/2 ML VIAL IVP SCH (15:45)
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
[2017-09-30 17:22] LABS: Troponin I 0.043 ng/mL (< 0.028)
[2017-09-30] MEDS: Potassium Chloride 40 MEQ in Sodium Chloride 0.45% 1,000 ML IV SCH (17:48)
[2017-09-30] MEDS: Carvedilol 3.125 MG TAB PO SCH (17:49)
[2017-09-30] MEDS: Famotidine 20 MG TAB PO SCH (21:27)
[2017-09-30] MEDS: Metoclopramide HCl 10 MG/2 ML VIAL IVP SCH (21:28)
[2017-09-30] MEDS: Acetaminophen 325 MG TAB PO PRN (21:28)
[2017-10-01] MEDS: Potassium Chloride 40 MEQ in Sodium Chloride 0.45% 1,000 ML IV SCH ×3 (03:32→23:29)
[2017-10-01] MEDS: Metoclopramide HCl 10 MG/2 ML VIAL IVP SCH ×3 (05:30→20:44)
[2017-10-01 05:44] LABS: #Eosinphils 0.1 thou/uL (0.0-0.7); #Lymphocytes 1.1 thou/uL (1.20-3.40); #Monocytes 0.8 thou/uL (0.11-0.59); #Neutrophils 6.5 thou/uL (1.40-6.50); %Basophils 0.1 % (0.0-1.0); %Eosinophils 1.1 % (0.0-10.0); %Monocytes 9.7 % (0.0-10.0); Hemoglobin 8.7 g/dL (14.0-18.0); Mean Corpuscular HGB CONC 32.8 g/dL (32.0-36.0); Mean Corpuscular Hemoglobin 29.7 pg (27.0-31.0); Mean Corpuscular Volume 90.6 fl (80.0-94.0); Mean Platelet Volume 6.4 fL (7.4-10.4); Platelet Count 236 thou/uL (130-400); RBC Distribution Width 12.8 % (11.5-14.5); Red Blood Cell (RBC) Count 2.92 mill/uL (4.70-6.10); White Blood Cell (WBC) Count 8.6 thou/uL (4.8-10.8)
[2017-10-01 05:57] LABS: Anion Gap 14 mmol/L (10-20); BUN (Urea Nitrogen) 30 mg/dL (8.4-25.7); Calc. Creatinine Clearance 50 mL/min (70-130); Carbon Dioxide 33 mmol/L (23-31); Chloride 94 mmol/L (98-107); Estimated GFR-MDRD 46; Glucose 93 mg/dL (83-110); Sodium 138 mmol/L (136-145)
[2017-10-01 06:00] LABS: Potassium 2.7 mmol/L (3.5-5.1)
[2017-10-01] MEDS: Aspirin 81 mg Enteric Coated Tablet PO SCH (08:36)
[2017-10-01] MEDS: Carvedilol 3.125 MG TAB PO SCH ×2 (08:36→17:16)
[2017-10-01] MEDS: Enoxaparin Sodium 40 MG/0.4 ML SYRINGE SC SCH (08:37)
[2017-10-01] MEDS ORDERED: Potassium Chloride 20 MEQ TAB PO SCH (08:45)
[2017-10-01] MEDS ORDERED: Magnesium 2 GM/NS 0.9% 50 ML 2 GM in Premix Bag 1 BAG IVPB SCH (08:45)
[2017-10-01] MEDS ORDERED: HYDROcodone/Acetaminophen 5/325 mg Tablet PO PRN (09:51)
--- NOTE | 2017-10-01 09:53 | PDOC.PN ---
- Subjective Encounter Start Date: 10/01/17 Encounter Start Time: 09:52 Mr. Judd was seen today in follow-up of N/V, and hypokalemia. He says he had some nausea last night, but it is better this morning. He would like to try a more solid diet. He has jace cramping pain in his legs. - Objective Resuscitation Status: Resuscitation Status FULL:Full Resuscitation MAR Reviewed: Yes Vital Signs & Weight: Vital Signs (12 hours) Temp Pulse Resp BP Pulse Ox 10/01/17 08:00 98.5 F 57 L 20 116/75 97 10/01/17 02:40 98.3 F 57 L 17 130/75 94 L 09/30/17 23:57 99.0 F 60 16 93/64 93 L Weight Weight 181 lb 8 oz I&O: 09/30/17 10/01/17 10/02/17 06:59 06:59 06:59 Intake Total 1468 Output Total 475 Balance 993 Result Diagrams: 10/01/17 05:25 10/01/17 05:25 Phys Exam - Physical Examination HEENT: PERRLA Respiratory: no wheezing, no rales, no rhonchi, clear to auscultation bilateral Cardiovascular: RRR, no significant murmur, no rub Gastrointestinal: soft, non-tender, positive bowel sounds Musculoskeletal: no edema Dx/Plan (1) Nausea & vomiting Code(s): R11.2 - NAUSEA WITH VOMITING, UNSPECIFIED Status: Acute (2) Hypokalemia Code(s): E87.6 - HYPOKALEMIA Status: Acute (3) Hypomagnesemia Code(s): E83.42 - HYPOMAGNESEMIA Status: Acute (4) Coronary artery disease Code(s): I25.10 - ATHSCL HEART DISEASE OF [place] CORONARY ARTERY W/O ANG PCTRS Status: Acute (5) Hx of CABG Status: Acute - Plan * Hypokalemia, and Hypomagnesemia- this is from vomiting- Will replace * Nausea and Vomiting- either Viral syndrome, or due to severe GERD- he seems to be improving- continue Reglan another day IV, and will advance diet * HTN- blood pressure is stable * CAD- stable. * Hopefully home tomorrow if K+ and MG++ better
[2017-10-01 13:59] VITALS: BMI 29.2
[2017-10-01] MEDS: Famotidine 20 MG TAB PO SCH (20:43)
[2017-10-02] MEDS: Metoclopramide HCl 10 MG/2 ML VIAL IVP SCH ×3 (05:03→20:03)
[2017-10-02 06:07] LABS: Anion Gap 12 mmol/L (10-20); BUN (Urea Nitrogen) 18 mg/dL (8.4-25.7); Calc. Creatinine Clearance 61 mL/min (70-130); Calcium 8.6 mg/dL (7.8-10.44); Carbon Dioxide 27 mmol/L (23-31); Chloride 97 mmol/L (98-107); Estimated GFR-MDRD 59; Glucose 82 mg/dL (83-110); Magnesium 1.8 mg/dL (1.6-2.6); Sodium 133 mmol/L (136-145)
[2017-10-02] MEDS ORDERED: Potassium Chloride 40 MEQ in Sodium Chloride 0.45% 1,000 ML IV SCH (08:02)
[2017-10-02] MEDS ORDERED: Potassium Chloride 20 MEQ TAB PO SCH (08:15)
[2017-10-02] MEDS: Carvedilol 3.125 MG TAB PO SCH ×2 (08:46→17:21)
[2017-10-02] MEDS: Enoxaparin Sodium 40 MG/0.4 ML SYRINGE SC SCH (08:49)
[2017-10-02] MEDS: Aspirin 81 mg Enteric Coated Tablet PO SCH (08:49)
--- NOTE | 2017-10-02 13:01 | PQF ---
DATE: ATTN: DR. MARYSOL SY Please exercise your independent, professional judgment in responding to the clarification form. Clinical indicators are provided on the bottom of this form for your review Please check appropriate box(s): [ ] Demand Ischemia [ ] Myocardial Infarction ( type: ) [ ] Other diagnosis [ ] Unable to determine In addition, please specify: Present on Admission (POA): [ ] Yes [ ] No [ ] Unable to determine For continuity of documentation, please document condition throughout progress notes and discharge summary. Thank You. CLINICAL INDICATORS - SIGNS / SYMPTOMS/ LABS are present in the medical record: Lab Results: TROPONIN: 09-30-17: 0.039 0.052, 0.043 RISK FACTORS: H&P: HX OF HTN, CAD, BYPASS SURGERY 2 MONTHS AGO, HX OF SEVERE GERD TREATMENT: SERIES OF TROPONIN H&P: RESTART HIS CARDIAC MEDICATIONS (This form is maintained as a part of the permanent medical record) 2014 [employer]. All Rights Reserved [email or web address] Office: [phone] [facility] CENTERCristiano
[2017-10-02] MEDS: Potassium Chloride 20 MEQ TAB PO SCH ×2 (13:02→17:21)
[2017-10-02] MEDS: Acetaminophen 325 MG TAB PO PRN (20:03)
[2017-10-02] MEDS: Famotidine 20 MG TAB PO SCH (20:03)
--- NOTE | 2017-10-02 21:14 | PDOC.PN ---
- Subjective Encounter Start Date: 10/02/17 Encounter Start Time: 16:00 Patient seen and examined. Nausea getting better. Feels slightly better. No overnight events - Objective Resuscitation Status: Resuscitation Status FULL:Full Resuscitation MAR Reviewed: Yes Vital Signs & Weight: Vital Signs (12 hours) Temp Pulse Resp BP Pulse Ox 10/02/17 19:21 100.6 F H 64 18 120/73 97 10/02/17 15:48 99.8 F H 66 20 115/82 95 10/02/17 11:40 99.1 F 64 20 113/76 98 Weight Admit Weight 173 lb Weight 178 lb 3.2 oz I&O: 10/01/17 10/02/17 10/03/17 06:59 06:59 06:59 Intake Total 1468 2975 1500 Output Total 475 1400 Balance 993 1575 1500 Result Diagrams: 10/01/17 05:25 10/02/17 05:15 EKG Reviewed by me: Yes (Tele SR) Phys Exam - Physical Examination Constitutional: NAD Respiratory: no wheezing, no rhonchi Cardiovascular: RRR, no rub Gastrointestinal: soft, non-tender, positive bowel sounds Musculoskeletal: no edema Dx/Plan - Plan DVT proph w/lovenox, DVT proph w/SCDs IMPRESSION: 1. N/V/Dehydration - improving 2. Electrolyte abn 3. Elevated troponins due to demand ischemia/recent CABG 4. CAD 5. HTN/GERD/HLD/GERD PLAN: * Cont IVF at 50 ml/hr * Replace Potassium * DC in AM if stable * Cont current meds as below Review of Systems - Review of Systems Respiratory: negative: Cough, Dry, Shortness of Breath, Hemoptysis, SOB with Excertion, Pleuritic Pain, Sputum, Wheezing Cardiovascular: negative: chest pain, palpitations, orthopnea, paroxysmal nocturnal dyspnea, edema, light headedness - Medications/Allergies Allergies/Adverse Reactions: Allergies Allergy/AdvReac Type Severity Reaction Status Date / Time No Known Allergies Allergy Verified 08/17/17 11:58 Medications: Current Medications Acetaminophen (Tylenol) 650 mg PO Q4H PRN PRN Reason: Headache/Fever or Mild Pain Last Admin: 10/02/17 20:03 Dose: 650 mg Acetaminophen (Tylenol) 650 mg NE Q4H PRN PRN Reason: Headache/Fever or Mild Pain Hydrocodone Bitart/Acetaminophen (Lutz 5/325) 2 tab PO Q4H PRN PRN Reason: Severe Pain (7-10) Aspirin (Ecotrin) [facility] Last Admin: 10/02/17 08:49 Dose: 81 mg Carvedilol (Coreg) 3.125 mg PO BID-[facility] Last Admin: 10/02/17 17:21 Dose: 3.125 mg Famotidine (Pepcid) 20 mg PO [facility] Last Admin: 10/02/17 20:03 Dose: 20 mg Hydralazine HCl (Apresoline) 10 mg SLOW IVP Q4H PRN PRN Reason: Systolic BP > 180 Potassium Chloride 40 meq/ (Sodium Chloride) 1,020 mls @ 50 mls/hr IV .[id number] [facility] Stop: 10/03/17 04:00 Last Admin: 10/02/17 09:32 Dose: 1,020 mls Ondansetron HCl (Zofran) 4 mg IVP Q6H PRN PRN Reason: Nausea/Vomiting Rosuvastatin Calcium (Crestor) 20 mg PO [facility] Last Admin: 10/02/17 20:03 Dose: 20 mg
[2017-10-03 07:54] VITALS: BP 139/90; TEMP 98
[2017-10-03] MEDS: Aspirin 81 mg Enteric Coated Tablet PO SCH (09:00)
[2017-10-03] MEDS: Carvedilol 3.125 MG TAB PO SCH (09:00)
[2017-10-03 09:28] LABS: Potassium 3.8 mmol/L (3.5-5.1)
--- NOTE | 2017-10-04 07:23 | DIS ---
DATE OF ADMISSION: 09/30/2017 DATE OF DISCHARGE: 10/03/2017 DISCHARGE DISPOSITION: Home. FOLLOWUP: With primary care physician, Dr. Anglin in 1 week. ALLERGIES: No known drug allergies. DISCHARGE MEDICATIONS: 1. Valsartan/HCTZ 160/25 daily (new medication). 2. Potassium chloride 10 mEq daily, #7. 3. [place] as needed. 4. Nexium 40 mg daily. 5. Colchicine 0.6 mg daily as needed. 6. Carvedilol 3.125 mg b.i.d. 7. Aspirin 81 mg daily. 8. Crestor 20 mg daily. INPATIENT CONSULTANTS: None. BRIEF HOSPITAL COURSE: The patient is a 72-year-old male with coronary artery disease, status post r ecent CABG, hypertension, and hyperlipidemia, presented to the hospital with nausea and vomiting. Th e patient was found to have significant electrolyte abnormalities including magnesium of 1.4, potassi um of 2.2. His creatinine on admission was 1.8 with a BUN of 36. Please refer to the history and ph ysical for further details. The patient was admitted to the hospital with diagnosis of nausea, vomiting, dehydration with acute k idney injury and electrolyte abnormality. His potassium has been replaced. The potassium on the day of discharge is 3.8. His creatinine is back to normal at 1.21 with a BUN of 18. Magnesium was also replaced and is 1.8 at discharge. His troponins were in the indeterminate range, probably secondary to dehydration. He was monitored on telemetry without significant arrhythmias. Nausea, vomiting, a nd dehydration is completely resolved. Lasix has been discontinued. He has been started on valsarta n/HCTZ. Repeat labs after 1 and 2 weeks is recommended. Primary care physician is advised to follow . He will continue potassium chloride replacement 10 mEq daily for another week. Plan of care was d iscussed with the patient and the spouse at the bedside in detail. They stated understanding. FINAL DIAGNOSES: 1. Nausea, vomiting, dehydration with acute kidney injury, resolved. 2. Chronic kidney disease stage 3. 3. Several electrolyte imbalance including hyponatremia, hypokalemia, hypomagnesemia. 4. Indeterminate troponins, probably secondary to demand ischemia versus recent coronary artery bypa ss graft. 5. Coronary artery disease. 6. Hypertension. 7. Gastroesophageal reflux disease. 8. Hyperlipidemia. 9. Obesity with BMI 30.9. Plan of care was discussed with the patient.
== END 2017-10-03 11:00 | disposition home or self-care (01) | DRG 683 ==
LOC: ERS 09:18 → ERHOLD 11:58 → 2SE 16:39
PROVIDERS: ADMIT Internal Medicine; ATTEND Internal Medicine
DX: N17.9 Acute kidney failure, unspecified (principal); E87.1 Hypo-osmolality and hyponatremia; I24.8 Other forms of acute ischemic heart disease; E86.0 Dehydration; E83.42 Hypomagnesemia; R11.2 Nausea with vomiting, unspecified; E78.5 Hyperlipidemia, unspecified; I25.10 Atherosclerotic heart disease of native coronary artery without angina pectoris; Z95.1 Presence of aortocoronary bypass graft; K21.9 Gastro-esophageal reflux disease without esophagitis; E87.6 Hypokalemia; E66.9 Obesity, unspecified; Z68.30 Body mass index [BMI] 30.0-30.9, adult; I12.9 Hypertensive chronic kidney disease with stage 1 through stage 4 chronic kidney disease, or unspecified chronic kidney disease; N18.3 Chronic kidney disease, stage 3 (moderate); Z85.828 Personal history of other malignant neoplasm of skin; Z92.3 Personal history of irradiation
CPT/HCPCS: 36415; 71010; 80048; 80053; 82553; 83690; 83735; 83880; 84132; 84484; 85025; 93005; 96361; 96365; 96366; 96375; G8978-GP-CI; G8979-GP-CI; G8980-GP-CI; G8987-GO-CH; G8988-GO-CH; G8989-GO-CH; J1650; J2405; J2765; J3475; J3480

== ENCOUNTER 2017-12-04 10:51 | Day surgery (SDC) | payer MEDICARE ==
[2017-12-04] MEDS ORDERED: Sodium Chloride 0.9% 10 ML ONE (11:14)
[2017-12-04] MEDS ORDERED: Acetaminophen 325 MG TAB PO SCH (11:30)
[2017-12-04 11:34] VITALS: BMI 28.2
[2017-12-04 17:20] VITALS: BP 120/74; TEMP 98.6
[2017-12-04] MEDS ORDERED: Prevnar 13-Val Conj/PF 0.5 ML SYRINGE IM ONE (21:00)
[2017-12-04] MEDS ORDERED: FLU VACC TS2017-18 (>65YR) 0.5 ML SYRINGE IM ONE (21:00)
== END 2017-12-04 18:04 | disposition home or self-care (01) ==
LOC: ONC/OP 10:51 → 3SE 11:05 → ONC/OP 18:04
PROVIDERS: ATTEND Internal Medicine Gastroenterology
PROC: 30233N1 Transfusion of Nonautologous Red Blood Cells into Peripheral Vein, Percutaneous Approach (ICD-10-PCS; principal; 2017-12-04)
DX: D50.9 Iron deficiency anemia, unspecified (principal); I12.9 Hypertensive chronic kidney disease with stage 1 through stage 4 chronic kidney disease, or unspecified chronic kidney disease; N18.3 Chronic kidney disease, stage 3 (moderate); I25.10 Atherosclerotic heart disease of native coronary artery without angina pectoris; K21.9 Gastro-esophageal reflux disease without esophagitis; E78.5 Hyperlipidemia, unspecified; E66.9 Obesity, unspecified; Z68.28 Body mass index [BMI] 28.0-28.9, adult
CPT/HCPCS: 36415; 36430; 86850; 86900; 86901; 90471; 90682; A4216; G0008; P9016; P9040; Q2036

== ENCOUNTER 2017-12-05 13:55 | Inpatient (IN) | payer MEDICARE ==
[2017-12-05 14:38] VITALS: BMI 27.9
[2017-12-05] MEDS ORDERED: Ondansetron ODT 4 MG TAB PO PRN (15:45)
--- NOTE | 2017-12-05 16:18 | RAD ---
PORTABLE CHEST 1 VIEW: DATE: 12/05/17. TIME: 4:02 p.m. HISTORY: Shortness of breath. FINDINGS: There are changes of median sternotomy. The heart size is borderline. No lobar consolidation, pneum othorax, renaldo pulmonary edema, or pleural effusions are seen. IMPRESSION: No radiographic evidence of acute cardiopulmonary process. POS: [facility]
[2017-12-05 16:41] LABS: #Lymphocytes 1.1 thou/uL (1.20-3.40); #Monocytes 0.9 thou/uL (0.11-0.59); #Neutrophils 15.4 thou/uL (1.40-6.50); %Basophils 0.1 % (0.0-1.0); %Eosinophils 0.1 % (0.0-10.0); %Lymphocytes 6.3 % (21.0-51.0); %Monocytes 5.3 % (0.0-10.0); %Neutrophils 88.2 % (42.0-75.0); Hemoglobin 10.2 g/dL (14.0-18.0); Mean Corpuscular HGB CONC 32.3 g/dL (32.0-36.0); Mean Corpuscular Hemoglobin 26.7 pg (27.0-31.0); Mean Corpuscular Volume 82.6 fl (80.0-94.0); Mean Platelet Volume 6.2 fL (7.4-10.4); Platelet Count 408 thou/uL (130-400); RBC Distribution Width 15.6 % (11.5-14.5); Red Blood Cell (RBC) Count 3.83 mill/uL (4.70-6.10); White Blood Cell (WBC) Count 17.4 thou/uL (4.8-10.8)
[2017-12-05 17:11] LABS: ALT (SGPT) 48 U/L (8-55); AST (SGOT) 37 U/L (5-34); Albumin 3.3 g/dL (3.4-4.8); Alkaline Phosphatase 176 U/L (40-150); Anion Gap 12 mmol/L (10-20); BUN (Urea Nitrogen) 11 mg/dL (8.4-25.7); Bilirubin, Total 0.6 mg/dL (0.2-1.2); Calc. Creatinine Clearance 59 mL/min (70-130); Carbon Dioxide 26 mmol/L (23-31); Chloride 101 mmol/L (98-107); Estimated GFR-MDRD 58; Globulin 3.6 g/dL (2.4-3.5); Glucose 86 mg/dL (83-110); Potassium 3.9 mmol/L (3.5-5.1); Protein, Total 6.9 g/dL (5.8-8.1); Sodium 135 mmol/L (136-145)
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
[2017-12-05] MEDS: Sodium Chloride 0.9% 1,000 ML IV SCH (18:42)
[2017-12-05] MEDS: Piperacillin/Tazobactam 3.375 GM in Sodium Chloride 0.9% 100 ML IVPB SCH (18:48)
[2017-12-05] MEDS: Docusate 100 MG CAP PO SCH (20:28)
[2017-12-05] MEDS: Pantoprazole 40 MG VIAL IVP SCH (20:29)
[2017-12-05] MEDS: Acetaminophen 325 MG TAB PO PRN (20:32)
--- NOTE | 2017-12-05 20:32 | CON ---
DATE OF CONSULTATION: 12/05/2017 HISTORY OF PRESENT ILLNESS: Mr. Judd is status post coronary artery bypass grafting x3 on 08/22/20 17 - this was left internal mammary artery to LAD, saphenous vein to OM and RCA. He has had nausea a nd vomiting recently and a resultant chest tightness. He has also had some fever recently. He was a nemic and was transfused yesterday 2 units of packed cells. [facility] and was febrile and admitted to the hospital here today. I was asked by Dr. Brink to evaluate his sternum to ensure that he had no sternal wound infection. He reports no e rythema, induration, or drainage from his sternal incision. He has had a fever at home for a couple weeks. PAST MEDICAL HISTORY: 1. Coronary artery disease. 2. Gastroesophageal reflux disease, status post hiatal hernia repair. 3. Hypertension. 4. Hyperlipidemia. 5. Parotid tumor. PAST SURGICAL HISTORY: 1. Coronary artery bypass grafting x3 in 08/2017. 2. Hiatal hernia repair. 3. Cholecystectomy. 4. Skin cancer resections. MEDICATIONS: Medications at home are noted. ALLERGIES: None. SOCIAL HISTORY: He does not use tobacco. He drinks about 4-5 beers a day. He prefers [employer] o drink. He is and accompanied by his today. REVIEW OF SYSTEMS: Ten-point review of systems was performed and is negative except as above. PHYSICAL EXAMINATION: GENERAL: This is a well-developed, well-nourished man resting comfortably in bed watching television . VITAL SIGNS: Temperature is 98.9, pulse is 92 and regular, blood pressure is 107/70. HEENT: Sclerae are nonicteric. NECK: Supple without adenopathy. There are no carotid bruits. CHEST: His lungs are clear bilaterally. His sternal incision is healed without induration or erythe ma. There is no instability. He has no drainage. SKIN: Well approximated throughout with a normal scar, 3+ months postoperatively. HEART: Rhythm is regular without murmur. ABDOMEN: Soft and nontender. EXTREMITIES: No cyanosis, clubbing, or edema. His left greater saphenous vein was harvested with an endoscopic technique. The saphenous vein incision at the knee and the resultant tract made by the e ndoscopic harvest are all nontender with no erythema or induration. LABORATORY DATA: White blood cell count is 17.4, hemoglobin is 10.2, platelet count is 408,000. Cre atinine is 1.23 - his baseline has been 1.2 to 1.6. Potassium is 3.9. ASSESSMENT AND PLAN: Fever of unknown origin with nausea and vomiting. His surgical incisions do no t appear to be the source of his fever or elevated white blood cell count. He has been started on Zo syn and fever workup is underway.
[2017-12-05] MEDS ORDERED: Famotidine/PF 20 mg/2ml Vial SLOW IVP SCH (21:00)
[2017-12-05 22:18] LABS: Bilirubin Negative (Negative); Blood, Urine Negative (Negative); Clarity CLEAR (Clear); Glucose, Urine (Dipstick) Negative (Negative); Leukocyte Negative (Negative); Nitrite Negative (Negative); Protein, Urine (Dipstick) Trace mg/dL (Neg-Trace); Specific Gravity, Urine 1.014 (1.002-1.036); pH, Urine 6.5 (5.0-9.0)
[2017-12-05 22:19] LABS: Bacteria/HPF None Seen HPF (None Seen); Hyaline Casts/LPF 0-3 HYALINE CAST LPF (0-3 Hyaline); RBC/HPF None Seen HPF (0-3); Squamous Epithelial 0-3 HPF (0-3); WBC/HPF 0-3 HPF (0-3)
[2017-12-06] MEDS: Piperacillin/Tazobactam 3.375 GM in Sodium Chloride 0.9% 100 ML IVPB SCH ×4 (00:11→18:42)
[2017-12-06] MEDS: Sodium Chloride 0.9% 1,000 ML IV SCH ×2 (05:21→20:55)
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
--- NOTE | 2017-12-06 08:47 | CT ---
CHEST CT WITH CONTRAST ABDOMEN CT WITH CONTRAST PELVIS CT WITH CONTRAST: Date: 12/06/17 HISTORY: Squamous cell cancer with radiation. Epigastric pain. Fever. COMPARISON: None. TECHNIQUE: Chest, abdomen, and pelvis CT performed with IV contrast. Enteric contrast was also administered. Cor onal reformatted images are submitted for interpretation. FINDINGS: CHEST CT: There is stranding of the anterior mediastinum with multiple surgical clips. There is a sternotomy wi th dehiscence. Heart is normal in size. There are coronary artery calcifications. The central pulmona ry arteries are unremarkable. There is dilatation of the root of the ascending thoracic aorta. There is adjacent fluid and strandin g. There is a small focus of contrast which appears to be a small outpouching measuring 6.0 mm. Addit ionally, there appears to be a small sliver of contrast which is extraluminal measuring 8.0 mm. Ulcer ation/short segment dissection of the aneurysmal ascending thoracic aorta cannot be excluded Cardiova scular surgical consultation is recommended. The ascending thoracic aorta measures 5.9 cm craniocauda l x 6.3 cm mediolateral. The aortic arch, descending thoracic aorta, and abdominal aorta have an over all normal caliber. No periaortic fat stranding. Note is made of a moderate hiatal hernia. Thoracic esophagus is unremarkable. Central airway is patent. Dependent atelectatic changes. No masses or consolidation. No pneumothorax or significant pleural fluid. There is a focal area of fat with enhancement along the posterior mediastinum, at the level of the af orementioned hiatal hernia. Significance is uncertain. ABDOMEN CT: Gallbladder is surgically absent. Intra and extrahepatic portal vein is patent. Hypodensity along the lateral aspect of the spleen is incompletely evaluated. Subcapsular infarct can not be excluded. Liver, pancreas, and adrenal glands have appropriate enhancement. No gastrohepatic, retrocrural, or periportal lymphadenopathy. No mesenteric mass, lymphadenopathy, free air, or free fluid. Symmetric enhancement of the kidneys. Bilaterally, no obstructive uropathy. 3.0 cm in the right kidne y is noted. No evidence of bowel obstruction. Multiple normal caliber small bowel loops. Ileocecal junction is no rmal. Appendix is not appreciated. No inflammation of cecal apex. Contrast and fecal material in a no ndistended, nondilated colon. Occasional diverticulosis. No evidence of diverticulitis. PELVIC CT: No mass, lymphadenopathy, free air, or free fluid. Urinary bladder is unremarkable. No lytic or blastic lesions in the osseous structures. IMPRESSION: 1. Aneurysmal dilatation of the ascending thoracic aorta. There are small pockets of contrast outsid e of the lumen of the ascending thoracic aorta suggesting possible ulceration or short-segment dissec tion. Cardiovascular surgical consultation is recommended. There is some stranding adjacent to the as cending thoracic aorta, further supporting the possibility of a possible dissection. 2. Hypodensity on the lateral aspect of the spleen which may represent a small splenic infarct. 3. Hiatal hernia with an area of fat with peripheral enhancement that may represent an area of focal fat necrosis. Results of study discussed with Dr. Brink on 12/06/17 at 0758 hours. CODE CR. POS: TAMRA
[2017-12-06] MEDS ORDERED: Colchicine 0.6 MG TAB PO PRN (09:00)
[2017-12-06] MEDS ORDERED: Spironolactone/Hctz 25 MG/25 MG TABLET PO SCH (09:00)
[2017-12-06] MEDS: Enoxaparin Sodium 40 MG/0.4 ML SYRINGE SC SCH (09:56)
[2017-12-06] MEDS: Gabapentin 300 MG CAP PO SCH (09:56)
[2017-12-06] MEDS: Docusate 100 MG CAP PO SCH ×2 (09:56→20:42)
[2017-12-06] MEDS: Rosuvastatin 20 MG TAB PO SCH (09:56)
[2017-12-06] MEDS: Aspirin 81 mg Enteric Coated Tablet PO SCH (09:56)
--- NOTE | 2017-12-06 14:19 | PDOC.PN ---
- Subjective Encounter Start Date: 12/06/17 Encounter Start Time: 09:00 Patient is seen today, Alert and oriented. No Concern noted, when asked if he has chest pain, he says yes it is 6/10, but it was 9/10 before, No nausea or vomitng anymore. No abdominal pain or back pain. - Objective Resuscitation Status: Resuscitation Status FULL:Full Resuscitation MAR Reviewed: Yes Vital Signs & Weight: Vital Signs (12 hours) Temp Pulse Pulse Resp BP BP Pulse Ox 12/06/17 13:47 98.4 F 133/80 12/06/17 11:22 150/92 H 12/06/17 11:21 97.7 F 63 18 151/89 H 100 12/06/17 08:52 74 122/78 12/06/17 08:00 97.7 F 74 18 121/76 98 12/06/17 06:00 98.5 F 12/06/17 04:00 97.8 F 66 20 124/80 98 Weight Admit Weight 173 lb 1.6 oz Weight 173 lb 1.6 oz Result Diagrams: 12/05/17 16:33 12/05/17 16:32 Radiology Reviewed by me: Yes EKG Reviewed by me: Yes Phys Exam - Physical Examination HEENT: PERRLA, moist MMs, sclera anicteric Neck: no nodes, no JVD Respiratory: no wheezing, no rales Cardiovascular: RRR, no significant murmur Gastrointestinal: soft, non-tender Musculoskeletal: no edema, pulses present Neurological: non-focal, normal sensation Lymphatic: no nodes Psychiatric: normal affect, A&O x 3 Skin: no rash, normal turgor Dx/Plan (1) Sepsis Code(s): A41.9 - SEPSIS, UNSPECIFIED ORGANISM Status: Acute Comment: Patient has Elevated CRP and procalcitonin and WBC, no source identified yet, Chest xray was normal, UA normal, Blood Culture Normal yet, Will continue on prophylaxis Abx, Zosyn/ levofloxin and vancomycin, as pt is septic. Consulted ID. (2) Aortic aneurysm and dissection Code(s): I71.00 - DISSECTION OF UNSPECIFIED SITE OF AORTA Status: Acute Comment: CT Chest showed possibility of Discection with extravassation of contrast outside Aorrtic lumen, pt is asymtomatic now, with Mild chest pain, Stbale hemofynamically, CV surgery Dr. Tirado has been consulted and Aware of it as the Result was called to . (3) Anemia Code(s): D64.9 - ANEMIA, UNSPECIFIED Status: Acute Comment: No source of Bleeding, pt received Blood transfusion perDr. Brink. as outpaitent, Now Hb is 10, will closley monitor. Will do Retic count, irone levels, Stool occult. Follow Gi recommedations. (4) GERD (gastroesophageal reflux disease) Code(s): K21.9 - GASTRO-ESOPHAGEAL REFLUX DISEASE WITHOUT ESOPHAGITIS Status: Acute Comment: Continue on protonix, Follow Gi recommedations, pt had funduplication per Dr. Brink note. (5) Hx of CABG Status: Acute Comment: Dr. Tirado on board, continue Asprin, BB now, No trop elevation, will order repeat EKG and Tropin for any chest pains. (6) Nausea & vomiting Code(s): R11.2 - NAUSEA WITH VOMITING, UNSPECIFIED Status: Acute Comment: resolved now, continue to monitor. - Plan cont current plan of care, plan discussed w/ family, continue antibiotics, PT/OT , social services manager, respiratory therapy, incentive spirometry, DVT proph w/SCDs * . - Discharge Day Encounter end time: 09:40 Review of Systems - Review of Systems Constitutional: negative: fever, chills, sweats, weakness, malaise, other Eyes: negative: Pain, Vision Change, Conjunctivae Inflammation, Eyelid Inflammation, Redness, Other ENT: negative: Ear Pain, Ear Discharge, Nose Pain, Nose Discharge, Nose Congestion, Mouth Pain, Mouth Swelling, Throat Pain, Throat Swelling, Other Respiratory: negative: Cough, Dry, Shortness of Breath, Hemoptysis, SOB with Excertion, Pleuritic Pain, Sputum, Wheezing Cardiovascular: chest pain. negative: palpitations, orthopnea, paroxysmal nocturnal dyspnea, edema, light headedness, other Gastrointestinal: Nausea. negative: Vomiting, Abdominal Pain, Diarrhea, Constipation, Melena, Hematochezia, Other Genitourinary: negative: Dysuria, Frequency, Incontinence, Hematuria, Retention , Other Musculoskeletal: negative: Neck Pain, Shoulder Pain, Arm Pain, Back Pain, Hand Pain, Leg Pain, Foot Pain, Other Skin: negative: Rash, Lesions, [place], Bruising, Other - Medications/Allergies Allergies/Adverse Reactions: Allergies Allergy/AdvReac Type Severity Reaction Status Date / Time No Known Allergies Allergy Verified 12/04/17 11:33 Medications: Current Medications Acetaminophen (Tylenol) 650 mg PO Q4H PRN PRN Reason: Headache/Fever or Pain Last Admin: 12/05/17 20:32 Dose: 650 mg Hydrocodone Bitart/Acetaminophen ([place] 5/325) 1 tab PO Q4H PRN PRN Reason: Moderate Pain (4-6) Aspirin (Ecotrin) 81 mg PO QAM [facility] Last Admin: 12/06/17 09:56 Dose: 81 mg Colchicine (Colcrys) 0.6 mg PO DAILY PRN PRN Reason: GOUT PAIN Docusate Sodium (Colace) 100 mg PO BID [facility] Last Admin: 12/06/17 09:56 Dose: Not Given Enoxaparin Sodium (Lovenox) 40 mg SC 0900 [facility] Last Admin: 12/06/17 09:56 Dose: 40 mg Gabapentin (Neurontin) 300 mg PO DAILY [facility] Last Admin: 12/06/17 09:56 Dose: 300 mg Piperacillin Sod/Tazobactam (Sod 3.375 gm/ Sodium Chloride) 100 mls @ 200 mls/ hr IVPB Q6HR [facility] Last Admin: 12/06/17 13:40 Dose: 100 mls Sodium Chloride (Normal Saline 0.9%) 1,000 mls @ 75 mls/hr IV .[id number] [facility] Last Admin: 12/06/17 05:21 Dose: 1,000 mls Levofloxacin 750 mg/ Device 150 mls @ 100 mls/hr IVPB 1000 [facility] Last Admin: 12/06/17 11:20 Dose: 150 mls Vancomycin HCl 1 gm/ Device 200 mls @ 166.67 mls/hr IVPB Q12HR [facility] Ondansetron HCl (Zofran Odt) 4 mg PO Q6H PRN PRN Reason: Nausea/Vomiting Ondansetron HCl (Zofran) 4 mg IVP Q6H PRN PRN Reason: Nausea/Vomiting Pantoprazole Sodium (Protonix) 40 mg IVP HS [facility] Last Admin: 12/05/17 20:29 Dose: 40 mg Rosuvastatin Calcium (Crestor) [facility] Last Admin: 12/06/17 09:56 Dose: 20 mg Sodium Chloride (Flush - Normal Saline) 10 ml IVF Q12HR [facility] Last Admin: 12/06/17 09:56 Dose: 10 ml Sodium Chloride (Flush - Normal Saline) 10 ml IVF PRN PRN PRN Reason: Saline Flush
[2017-12-06 14:51] LABS: Reticulocyte Count 1.1 % (0.5-1.5)
[2017-12-06 15:11] LABS: Iron 17 ug/dL (65-175); Iron Binding Capacity, Total 144 mcg/dL (261-462)
--- NOTE | 2017-12-06 20:13 | CON ---
DATE OF CONSULTATION: 12/06/2017 REASON FOR CONSULTATION: Fever. 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 Weaver, radiation therapist, next visit in a few weeks. The patient reports that he was having pain following the bypass graft surgery in the sternotomy site, pretty much since he was discharged from the hospital last year without any inflammatory changes, but then he saw Dr. Brink and had a blood transfusion given and was scheduled for repeat endoscopies. Then, he went to see Dr. Weaver, had a temperature, and was then transferred for admission. Initial findings included BP 107/70, heart rate 92, respirations 16 , and O2 sat 97%. At the emergency room, his temperature was 98.1 initially and went up to 100.2 subsequently. The exam was fairly unremarkable. He had a chest, abdomen, and pelvis CT and this demonstrated dilatation of the ascending thoracic aorta with small pockets of contrast outside the lumen of the ascending thoracic aorta, some stranding adjacent to the ascending thoracic aorta noted too. This was read by Dr. Cr. There was some hypodensity on the lateral aspect of the spleen, which could represent a small splenic infarct. Currently, Mr. Judd is sitting up by the bedside. His is in the room with him. He is awake, alert, oriented. Denies any headaches, visual symptoms, sore throat, odynophagia, dysphagia. Still has a little bit of tenderness in the anterior chest area. No other joint symptoms. No back pain. No abdominal pain, diarrhea, or genitourinary symptoms. No skin disorder. No neurological symptoms. PAST MEDICAL HISTORY: Coronary artery disease with bypass graft surgery last year; GERD with previous EGD, which did not show anything remarkable. He had a colonoscopy with a few polyps as well. 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 PAST SURGICAL HISTORY: Includes skin cancer resections, cholecystectomy, hiatal hernia repair with a Tino fundoplication. CURRENT MEDICATIONS: Includes Tylenol, [place], Ecotrin, Colcrys, Colace, Lovenox , Neurontin, levofloxacin, Zosyn, vancomycin. ALLERGIES: None. SOCIAL HISTORY: Never a smoker. FAMILY HISTORY: Noncontributory. PHYSICAL EXAMINATION: VITAL SIGNS: T-max 99.2 after admission; currently, he is 98.3. Other vital signs were not remarkable. SKIN: With no findings of significance. Sternotomy site appears completely normal. Peripheral IV access. No Reeves catheter. No lymphadenopathy. HEENT: Ocular movements conjugate. Oral cavity normal. Quite a few teeth in place, in fairly decent shape. NECK: Supple. No jugular distention or carotid bruits. No thyromegaly. LUNGS: Symmetric. Clear breath sounds. BACK: No spine tenderness. HEART: S1, S2 regular rate without murmurs. No S3, S4. ABDOMEN: Soft. Not distended or tender. No ascites. No bladder distention. EXTREMITIES: No joint inflammatory activity. Moves all extremities equally. NEUROLOGIC: Cognitive function appears to be intact. LABORATORY DATA: Urinalysis is normal. White cell count 17.4, hemoglobin 10.2 , platelets 408,000, 88% neutrophils. AST 37, ALT 176, CRP 17, albumin 3.3, sodium 135. ASSESSMENT: 1. Coronary artery disease, recent bypass graft surgery. 2. 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 3. Gastrointestinal symptoms including reflux with a followup EGD scheduled. 4. Fever with findings on CT of chest and abdomen, which have been reviewed by Radiology and by Dr. Tirado. The findings related to the aorta have been felt not to be significant by Dr. Tirado, although they are certainly would appear to be critical if the radiologist's interpretation is correct. It is not clear if the images showed calcification or true contrast in the images identified. The splenic area of hypodensity is widened at the periphery of the spleen in 1 or 2 cuts, quite small, and could reflect a splenic infarct or a splenic cyst, not clear which one it is. I do not think there is a certainty that this represents a splenic infarct. From a practical standpoint, we will have to follow blood cultures. We will discontinue levofloxacin and we will have to clarify the findings related to the mediastinum, particularly the big vessels and the aorta. If blood cultures turn positive, then we will have to consider the possibility of endovascular or endocardial lesion in view of the splenic findings. [facility]
--- NOTE | 2017-12-06 20:17 | PRG ---
DATE OF SERVICE: 12/06/2017 SUBJECTIVE: Mr. Judd notes that he started night sweats last night, but he has had no chills this morning, no cough. OBJECTIVE: VITAL SIGNS: Temperature 97.7, T-max was 99.5, pulse is 63 and blood pressure 151/89. LUNGS: Clear. HEART: Regular rate and rhythm without clicks or murmurs. ABDOMEN: Soft and nontender. EXTREMITIES: No clubbing, cyanosis or edema. LABORATORY DATA: No labs today. Blood cultures pending. IMAGING DATA: 1. CT scan showed a thoracic ascending aortic aneurysm, which is old. I talked with Dr. Tirado the [facility] Radiology has about the images are just related to the surgery itself that he had with bypass and being on the pump. He does not feel it is related to his symptoms. 2. CAT scan also shows a hiatal hernia. He has had a previous fundoplication. There is a slip of t he stomach above this. This is probably the reason for his vomiting. The radiologist was also pavel rned about a little bit of necrotic fat there. There is no sign of perforation. ASSESSMENT AND PLAN: 1. We will keep him on liquids today, n.p.o. after midnight and plan for endoscopy tomorrow morning to evaluate the anatomy there. If there are signs of paraesophageal hernia, he may need to have this repaired. 2. We would continue antibiotics at this time, repeat blood work tomorrow.
[2017-12-06] MEDS: Pantoprazole 40 MG VIAL IVP SCH (20:43)
[2017-12-06] MEDS: Vancomycin HCl 1 GM in Premix Bag 1 BAG IVPB SCH (20:44)
[2017-12-06] MEDS ORDERED: Vancomycin HCl 1 GM in Sodium Chloride 0.9% 250 ML 250 ML IVPB SCH (21:00)
[2017-12-06] MEDS: Acetaminophen 325 MG TAB PO PRN (21:47)
[2017-12-06] MEDS: Ondansetron HCl/PF 4 MG/2 ML Vial IVP PRN (22:51)
[2017-12-07] MEDS: Piperacillin/Tazobactam 3.375 GM in Sodium Chloride 0.9% 100 ML IVPB SCH ×4 (00:22→17:49)
[2017-12-07] MEDS: Sodium Chloride 0.9% 1,000 ML IV SCH ×2 (04:28→15:33)
[2017-12-07 04:37] LABS: Anion Gap 12 mmol/L (10-20); BUN (Urea Nitrogen) 10 mg/dL (8.4-25.7); Calc. Creatinine Clearance 61 mL/min (70-130); Calcium 9.1 mg/dL (7.8-10.44); Carbon Dioxide 24 mmol/L (23-31); Chloride 104 mmol/L (98-107); Estimated GFR-MDRD 60; Glucose 87 mg/dL (83-110); Magnesium 1.7 mg/dL (1.6-2.6); Potassium 3.1 mmol/L (3.5-5.1); Sodium 137 mmol/L (136-145)
[2017-12-07 05:18] LABS: Band 21 % (5-11); Hemoglobin 8.6 g/dL (14.0-18.0); Hypochromia SLIGHT = 6-15 cells (100X) (0-5/hpf); Lymphocytes 6 % (21-51); MDiff Complete? YES; Mean Corpuscular HGB CONC 31.8 g/dL (32.0-36.0); Mean Corpuscular Hemoglobin 26.4 pg (27.0-31.0); Mean Corpuscular Volume 83.1 fl (80.0-94.0); Mean Platelet Volume 6.3 fL (7.4-10.4); Monocytes 1 % (0-10); Neutrophil 71 % (42-75); Ovalocytes SLIGHT = 2-5 cells (100X) (0-1/hpf); PLT Morphology Comment Appears Adequate; Platelet Count 362 thou/uL (130-400); RBC Distribution Width 15.8 % (11.5-14.5); Reactive Lymphocytes 1 % (0-10); Red Blood Cell (RBC) Count 3.26 mill/uL (4.70-6.10)
[2017-12-07] MEDS: Ondansetron HCl/PF 4 MG/2 ML Vial IVP PRN (06:13)
[2017-12-07] MEDS: Vancomycin HCl 1 GM in Premix Bag 1 BAG IVPB SCH (08:01)
[2017-12-07] MEDS: Enoxaparin Sodium 40 MG/0.4 ML SYRINGE SC SCH (11:59)
[2017-12-07] MEDS: Docusate 100 MG CAP PO SCH ×2 (11:59→21:45)
[2017-12-07] MEDS: Aspirin 81 mg Enteric Coated Tablet PO SCH (11:59)
--- NOTE | 2017-12-07 14:31 | PDOC.PN ---
- Subjective Encounter Start Date: 12/07/17 Encounter Start Time: 12:00 Patint is seen today, being taken to EGD in a min, No other concerns noted. - Objective Resuscitation Status: Resuscitation Status FULL:Full Resuscitation MAR Reviewed: Yes Vital Signs & Weight: Vital Signs (12 hours) Temp Pulse Resp BP Pulse Ox 12/07/17 11:09 97.6 F 69 18 101/65 98 12/07/17 08:00 97.1 F L 68 18 98 12/07/17 07:27 97.1 F L 68 18 99/65 98 12/07/17 04:00 97.7 F 72 18 91/64 98 Weight Admit Weight 173 lb 1.6 oz Weight 173 lb 1.6 oz Result Diagrams: 12/07/17 03:18 12/07/17 03:18 Radiology Reviewed by me: Yes EKG Reviewed by me: Yes Phys Exam - Physical Examination HEENT: PERRLA, moist MMs Neck: no nodes, no JVD Respiratory: no wheezing, no rales Cardiovascular: RRR, no significant murmur Gastrointestinal: soft, non-tender Musculoskeletal: no edema, pulses present Neurological: non-focal, normal sensation Psychiatric: normal affect, A&O x 3 Skin: no rash, normal turgor Dx/Plan (1) Sepsis Code(s): A41.9 - SEPSIS, UNSPECIFIED ORGANISM Status: Acute Comment: Patient has Elevated CRP and procalcitonin and WB worsening , no source identified yet, Chest xray was normal, UA normal, Blood Culture Normal yet, Will continue on prophylaxis Abx, Zosyn/ levofloxin and vancomycin, as pt is septic. Consulted ID, he plan to adjust antibiotics. (2) Aortic aneurysm and dissection Code(s): I71.00 - DISSECTION OF UNSPECIFIED SITE OF AORTA Status: Acute Comment: Dr. Tirado Doesnt feel pt has Discetion. Will continue to follow and mingley Monitor and follow his recommedations. (3) Anemia Code(s): D64.9 - ANEMIA, UNSPECIFIED Status: Acute Comment: No source of Bleeding, pt received Blood transfusion perDrAl Brink. as outpaitent, Now Hb is 10, will closley monitor. Will do Retic count, irone levels, Stool occult. Follow Gi recommedations. (4) GERD (gastroesophageal reflux disease) Code(s): K21.9 - GASTRO-ESOPHAGEAL REFLUX DISEASE WITHOUT ESOPHAGITIS Status: Acute Comment: Continue on protonix, Follow Gi recommedations, pt had funduplication per Dr. Brink note. (5) Hx of CABG Status: Acute Comment: Dr. Tirado on board, continue Asprin, BB now, No trop elevation, will order repeat EKG and Tropin for any chest pains. (6) Nausea & vomiting Code(s): R11.2 - NAUSEA WITH VOMITING, UNSPECIFIED Status: Acute Comment: resolved now, continue to monitor. - Plan cont current plan of care, continue antibiotics, PT/OT, respiratory therapy, incentive spirometry, DVT proph w/SCDs * . - Discharge Day Encounter end time: 12:30 Review of Systems - Review of Systems Eyes: negative: Pain, Vision Change, Conjunctivae Inflammation, Eyelid Inflammation, Redness, Other ENT: negative: Ear Pain, Ear Discharge, Nose Pain, Nose Discharge, Nose Congestion, Mouth Pain, Mouth Swelling, Throat Pain, Throat Swelling, Other Respiratory: negative: Cough, Dry, Shortness of Breath, Hemoptysis, SOB with Excertion, Pleuritic Pain, Sputum, Wheezing Cardiovascular: negative: chest pain, palpitations, orthopnea, paroxysmal nocturnal dyspnea, edema, light headedness, other Gastrointestinal: negative: Nausea, Vomiting, Abdominal Pain, Diarrhea, Constipation, Melena, Hematochezia, Other Genitourinary: negative: Dysuria, Frequency, Incontinence, Hematuria, Retention , Other Musculoskeletal: negative: Neck Pain, Shoulder Pain, Arm Pain, Back Pain, Hand Pain, Leg Pain, Foot Pain, Other - Medications/Allergies Allergies/Adverse Reactions: Allergies Allergy/AdvReac Type Severity Reaction Status Date / Time No Known Allergies Allergy Verified 12/04/17 11:33 Medications: Current Medications Acetaminophen (Tylenol) 650 mg PO Q4H PRN PRN Reason: Headache/Fever or Pain Last Admin: 12/06/17 21:47 Dose: 650 mg Hydrocodone Bitart/Acetaminophen ([place] 5/325) 1 tab PO Q4H PRN PRN Reason: Moderate Pain (4-6) Aspirin (Ecotrin) 81 mg PO QAM [facility]S AT [facility] Last Admin: 12/07/17 11:59 Dose: Not Given Colchicine (Colcrys) 0.6 mg PO DAILY PRN PRN Reason: GOUT PAIN Docusate Sodium (Colace) 100 mg PO BID [facility] Last Admin: 12/07/17 11:59 Dose: Not Given Enoxaparin Sodium (Lovenox) 40 mg SC 0900 [facility] 234 [facility]S AT [facility] Last Admin: 12/07/17 11:59 Dose: Not Given Gabapentin (Neurontin) 300 mg PO DAILY [facility] 234 BEDS AT [facility] Last Admin: 12/06/17 09:56 Dose: 300 mg Piperacillin Sod/Tazobactam (Sod 3.375 gm/ Sodium Chloride) 100 mls @ 200 mls/ hr IVPB Q6HR [facility] 234 BEDS AT THE [facility] Last Admin: 12/07/17 12:04 Dose: 100 mls Sodium Chloride (Normal Saline 0.9%) 1,000 mls @ 75 mls/hr IV .[id number] [facility]S [facility]CLUDE 234 BEDS AT [facility] Last Admin: 12/07/17 04:28 Dose: 1,000 mls Vancomycin HCl 1 gm/ Device 200 mls @ 166.67 mls/hr IVPB Q12HR [facility] 234 BEDS AT [facility] Last Admin: 12/07/17 08:01 Dose: 200 mls Ondansetron HCl (Zofran Odt) 4 mg PO Q6H PRN PRN Reason: Nausea/Vomiting Ondansetron HCl (Zofran) 4 mg IVP Q6H PRN PRN Reason: Nausea/Vomiting Last Admin: 12/07/17 06:13 Dose: 4 mg Pantoprazole Sodium (Protonix) 40 mg IVP HS [facility] 234 BEDS AT [facility] Last Admin: 12/06/17 20:43 Dose: 40 mg Rosuvastatin Calcium (Crestor) 20 mg PO QAM [facility] 234 BEDS AT [facility] Last Admin: 12/06/17 09:56 Dose: 20 mg Sodium Chloride (Flush - Normal Saline) 10 ml IVF Q12HR [facility] 234 BEDS AT [facility] Last Admin: 12/07/17 12:03 Dose: 10 ml Sodium Chloride (Flush - Normal Saline) 10 ml IVF PRN PRN PRN Reason: Saline Flush
[2017-12-07] MEDS ORDERED: PROPOFOL 200 MG/20 ML VIAL ONE (14:58)
[2017-12-07] MEDS ORDERED: Lidocaine 1% PF 5 ML VIAL ONE (14:58)
[2017-12-07] MEDS: Gabapentin 300 MG CAP PO SCH (15:36)
[2017-12-07] MEDS: Rosuvastatin 20 MG TAB PO SCH (15:36)
--- NOTE | 2017-12-07 19:31 | PRG ---
DATE OF SERVICE: 12/07/2017 SUBJECTIVE: Mr. Judd continues with intermittent chills and sweats and continues with the pain in the mid-anterior chest region, which he grades at 6/10. He had one episode of vomiting last night, b ut not today. No dyspnea, no cough, or sputum production. No abdominal pain, no genitourinary sympt oms. OBJECTIVE: VITAL SIGNS: Temperature max 102 yesterday at 10:00 p.m. has been afebrile throughout today, BP 105/ 73, pulse 74, respirations 20, O2 saturation 97%. GENERAL: Appears in no distress, awake, oriented, pleasant. HEENT: Ocular movements conjugate. Oral cavity normal. NECK: Supple. BACK: No back tenderness. LUNGS: Clear. CARDIOVASCULAR: S1, S2, without murmurs. Diminished heart sounds. There is tenderness in the mid s ternotomy area, but no inflammatory changes. ABDOMEN: Normal. No bladder distention. No genital abnormalities. EXTREMITIES: No joint inflammatory activity. NEUROLOGIC: Nonfocal. LABORATORY DATA: White cell count 23,000, hemoglobin 8.6, platelets 362, and neutrophil percentage d own to 71, but bands are up to 21. Urinalysis essentially normal. AST 37, alkaline phosphatase 176. CRP 17, albumin 3.3 and now we have 1 or 2 sets of blood cultures with positive for Pseudomonas aer uginosa with pending susceptibilities. 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 The findings i n the CT scan of chest and abdomen have been discussed with radiologist by Dr. Brink and a second ra diologist was not too impressed by the findings just like Dr. Tirado. He does have some stranding in other areas, particularly at the diaphragmatic hernia site, but all the findings are somewhat subtle and evidently, there is no evidence of an intraabdominal inflammatory process, although he does have though that is splenic area of hypodensity, which could represent either a cyst or an area of embolic infarct. In view of the bacteremia, I believe that the concern with aortitis persists or endocardit is. I think, we need to proceed with either indium-WBC labeled study or an MRI with contrast or both . Another study will be very helpful would be a PET scan, but that is not available at this [facility] ion. Short of that the other thing we could do is repeat the CT scan hoping that the findings would be more obvious in the next study. We will go ahead and order the indium-labeled study and probably order an MRI as well.
[2017-12-07] MEDS: Pantoprazole 40 MG VIAL IVP SCH (21:42)
[2017-12-07] MEDS: HYDROcodone/Acetaminophen 5/325 mg Tablet PO PRN (21:49)
--- NOTE | 2017-12-07 22:58 | OP ---
PREPROCEDURE DIAGNOSES: 1. Recurrent vomiting. 2. Recurrent anemia. 3. Previous hiatal hernia repair. CAT scan showing hiatal hernia, questionable some necrosis or fat in the posterior mediastinum in association with this. POST-PROCEDURE DIAGNOSES: 1. Distal reflux esophagitis. 2. Slipped on that fundoplication repair with a hiatal hernia with no evidence of volvulus or necros is. 3. Otherwise normal stomach. 4. Normal duodenum. RECOMMENDATIONS: 1. PPI therapy. 2. Sit upright after eating. 3. To decrease risk of vomiting, aspiration. 4. Resume diet. 5. I think that the fever is unrelated to this. If workup is otherwise negative from ID standpoint, we can always ask General Surgery to evaluate. There are no signs of necrosis or abscess in the [address] in association with this slipped Tino fundoplication. ANESTHESIA: TIVA. PROCEDURE IN DETAIL: After the patient was informed of the risks, benefits, possible complications o f endoscopy including perforation, bleeding, reactions to medication and aspiration, informed consent was obtained. The patient was brought to endoscopy suite where he was sedated in standard fashion. Once he was comfortable, a bite block was placed in incisural orifice. The endoscope was advanced t hrough esophagus, stomach and second and third portion of the duodenum and slowly removed. The esoph liya was normal except for distal erosions consistent with reflux. There was a hiatal hernia. Proxi mal gastric folds about 35 cm and the hiatus at 40 cm. This was complicated by fundoplication in thi s area as well. There are no signs of necrotic tissue ulcers or erosions in this area. There is no volvulus. The retroflexed views in the hiatus were normal and retroflexion below this were otherwise normal except for the postoperative changes from fundoplication. The remainder of the stomach was n ormal in forward views and the duodenum was normal to the third portion. The scope was removed. The patient tolerated the procedure well with no complications.
[2017-12-08] MEDS: Piperacillin/Tazobactam 3.375 GM in Sodium Chloride 0.9% 100 ML IVPB SCH ×4 (00:26→17:06)
[2017-12-08 05:22] LABS: Band 2 % (5-11); Hypochromia SLIGHT = 6-15 cells (100X) (0-5/hpf); Lymphocytes 7 % (21-51); MDiff Complete? YES; Mean Corpuscular Hemoglobin 26.7 pg (27.0-31.0); Mean Corpuscular Volume 83.4 fl (80.0-94.0); Mean Platelet Volume 6.7 fL (7.4-10.4); Monocytes 7 % (0-10); Neutrophil 84 % (42-75); PLT Morphology Comment Appears Adequate; Platelet Count 317 thou/uL (130-400); Red Blood Cell (RBC) Count 3.02 mill/uL (4.70-6.10); White Blood Cell (WBC) Count 12.1 thou/uL (4.8-10.8)
[2017-12-08 05:38] LABS: Syphilis Antibody Nonreactive (Nonreactive)
[2017-12-08] MEDS: Sodium Chloride 0.9% 1,000 ML IV SCH ×2 (07:49→12:02)
[2017-12-08] MEDS: Rosuvastatin 20 MG TAB PO SCH (07:49)
[2017-12-08] MEDS: Enoxaparin Sodium 40 MG/0.4 ML SYRINGE SC SCH (07:50)
[2017-12-08] MEDS: Aspirin 81 mg Enteric Coated Tablet PO SCH (07:50)
[2017-12-08] MEDS: Docusate 100 MG CAP PO SCH ×2 (07:50→21:27)
[2017-12-08] MEDS: Gabapentin 300 MG CAP PO SCH (07:50)
--- NOTE | 2017-12-08 15:00 | PDOC.PN ---
- Subjective Encounter Start Date: 12/08/17 Encounter Start Time: 11:00 Tess is seen today, alert and oriented. xplained to Family whats going with Workup for his infection. - Objective Resuscitation Status: Resuscitation Status FULL:Full Resuscitation MAR Reviewed: Yes Vital Signs & Weight: Vital Signs (12 hours) Temp Pulse Resp BP Pulse Ox 12/08/17 12:03 97.6 F 67 20 114/77 100 12/08/17 08:13 97.6 F 62 20 124/85 98 12/08/17 08:00 97.6 F 62 20 98 12/08/17 04:34 97.7 F 58 L 16 98/63 98 Weight Admit Weight 173 lb 1.6 oz Weight 173 lb 1.6 oz I&O: 12/07/17 12/08/17 12/09/17 06:59 06:59 07:59 Intake Total 1340 Balance 1340 Result Diagrams: 12/08/17 03:40 12/07/17 03:18 Radiology Reviewed by me: Yes EKG Reviewed by me: Yes Phys Exam - Physical Examination HEENT: PERRLA, moist MMs Neck: no nodes, no JVD Respiratory: no wheezing, no rales Cardiovascular: RRR, no significant murmur Gastrointestinal: soft, non-tender Musculoskeletal: no edema Neurological: non-focal, normal sensation Lymphatic: no nodes Psychiatric: normal affect, A&O x 3 Skin: no rash, normal turgor Dx/Plan (1) Sepsis Code(s): A41.9 - SEPSIS, UNSPECIFIED ORGANISM Status: Acute Qualifiers: Sepsis type: Pseudomonas Qualified Code(s): A41.52 - Sepsis due to Pseudomonas Comment: Pseudomonas bacteremia, Will continue on Zosyn/ levofloxin and vancomycin, as pt is septic. Plan for further evalaution with WBC tagged scan (2) Aortic aneurysm and dissection Code(s): I71.00 - DISSECTION OF UNSPECIFIED SITE OF AORTA Status: Acute Comment: Dr. Tirado Doesnt feel pt has Discetion. Will continue to follow and anabel Monitor and follow his recommedations. Second opinion from Radiology also feel pt has no evidence of discetion. (3) Anemia Code(s): D64.9 - ANEMIA, UNSPECIFIED Status: Acute Comment: No source of Bleeding, pt received Blood transfusion perDr. Brink. as outpaitent, Now Hb is 10, will closley monitor. Will do Retic count, irone levels, Stool occult. Follow Gi recommedations. (4) GERD (gastroesophageal reflux disease) Code(s): K21.9 - GASTRO-ESOPHAGEAL REFLUX DISEASE WITHOUT ESOPHAGITIS Status: Acute Comment: Continue on protonix, Follow Gi recommedations, pt had funduplication per Dr. Brink note. (5) Hx of CABG Status: Acute Comment: Dr. Tirado on board, continue Asprin, BB now, No trop elevation, will order repeat EKG and Tropin for any chest pains. (6) Nausea & vomiting Code(s): R11.2 - NAUSEA WITH VOMITING, UNSPECIFIED Status: Acute Comment: resolved now, continue to monitor. - Plan cont current plan of care, plan discussed w/ family, continue antibiotics, PT/OT , social science manager, incentive spirometry, DVT proph w/lovenox * . - Discharge Day Encounter end time: 11:35 Review of Systems - Review of Systems Eyes: negative: Pain, Vision Change, Conjunctivae Inflammation, Eyelid Inflammation, Redness, Other ENT: negative: Ear Pain, Ear Discharge, Nose Pain, Nose Discharge, Nose Congestion, Mouth Pain, Mouth Swelling, Throat Pain, Throat Swelling, Other Respiratory: negative: Cough, Dry, Shortness of Breath, Hemoptysis, SOB with Excertion, Pleuritic Pain, Sputum, Wheezing Cardiovascular: negative: chest pain, palpitations, orthopnea, paroxysmal nocturnal dyspnea, edema, light headedness, other Gastrointestinal: negative: Nausea, Vomiting, Abdominal Pain, Diarrhea, Constipation, Melena, Hematochezia, Other Genitourinary: negative: Dysuria, Frequency, Incontinence, Hematuria, Retention , Other Musculoskeletal: negative: Neck Pain, Shoulder Pain, Arm Pain, Back Pain, Hand Pain, Leg Pain, Foot Pain, Other Skin: negative: Rash, Lesions, Ventura, Bruising, Other Neurological: negative: Weakness, Numbness, Incoordination, Change in Speech, Confusion, Seizures, Other - Medications/Allergies Allergies/Adverse Reactions: Allergies Allergy/AdvReac Type Severity Reaction Status Date / Time No Known Allergies Allergy Verified 12/04/17 11:33 Medications: Current Medications Acetaminophen (Tylenol) 650 mg PO Q4H PRN PRN Reason: Headache/Fever or Pain Last Admin: 12/06/17 21:47 Dose: 650 mg Hydrocodone Bitart/Acetaminophen ([place] 5/325) 1 tab PO Q4H PRN PRN Reason: Moderate Pain (4-6) Last Admin: 12/07/17 21:49 Dose: 1 tab Aspir[facility] (Ecotrin) [facility] [place] Last Admin: 12/08/17 07:50 Dose: 81 mg Colchicine (Colcrys) 0.6 mg PO DAILY PRN PRN Reason: GOUT PAIN Docusate Sodium (Colace) 100 mg PO BID [facility] Last Admin: 12/08/17 07:50 Dose: Not Given Enoxaparin Sodium (Lovenox) 40 mg SC 0900 [facility] Last Admin: 12/08/17 07:50 Dose: 40 mg Gabapentin (Neurontin) 300 mg PO DAILY [facility] Last Admin: 12/08/17 07:50 Dose: 300 mg Piperacillin Sod/Tazobactam (Sod 3.375 gm/ Sodium Chloride) 100 mls @ 200 mls/ hr IVPB Q6HR [facility] Last Admin: 12/08/17 11:56 Dose: 100 mls Sodium Chloride (Normal Saline 0.9%) 1,000 mls @ 75 mls/hr IV .[id number] [facility] Last Admin: 12/08/17 12:02 Dose: Not Given Levofloxacin 750 mg/ Device 150 mls @ 100 mls/hr IVPB 1700 [facility] Last Admin: 12/07/17 16:22 Dose: 150 mls Ondansetron HCl (Zofran Odt) 4 mg PO Q6H PRN PRN Reason: Nausea/Vomiting Ondansetron HCl (Zofran) 4 mg IVP Q6H PRN PRN Reason: Nausea/Vomiting Last Admin: 12/07/17 06:13 Dose: 4 mg Pantoprazole Sodium (Protonix) 40 mg IVP HS [facility] Last Admin: 12/07/17 21:42 Dose: 40 mg Rosuvastatin Calcium (Crestor) [facility] [place] Last Admin: 12/08/17 07:49 Dose: 20 mg Sodium Chloride (Flush - Normal Saline) 10 ml IVF Q12HR [facility] Last Admin: 12/08/17 07:58 Dose: 10 ml Sodium Chloride (Flush - Normal Saline) 10 ml IVF PRN PRN PRN Reason: Saline Flush
[2017-12-08] MEDS: Pantoprazole 40 MG VIAL IVP SCH (21:25)
[2017-12-09] MEDS: Piperacillin/Tazobactam 3.375 GM in Sodium Chloride 0.9% 100 ML IVPB SCH ×5 (00:13→23:48)
[2017-12-09] MEDS: HYDROcodone/Acetaminophen 5/325 mg Tablet PO PRN (06:02)
[2017-12-09] MEDS: Sodium Chloride 0.9% 1,000 ML IV SCH ×3 (09:06→23:48)
[2017-12-09] MEDS: Enoxaparin Sodium 40 MG/0.4 ML SYRINGE SC SCH (09:07)
[2017-12-09] MEDS: Aspirin 81 mg Enteric Coated Tablet PO SCH (09:07)
[2017-12-09] MEDS: Gabapentin 300 MG CAP PO SCH (09:07)
[2017-12-09] MEDS: Rosuvastatin 20 MG TAB PO SCH (09:07)
[2017-12-09] MEDS: Docusate 100 MG CAP PO SCH ×2 (09:08→20:30)
[2017-12-09 11:40] LABS: #Eosinphils 0.1 thou/uL (0.0-0.7); #Lymphocytes 1.1 thou/uL (1.20-3.40); #Monocytes 0.9 thou/uL (0.11-0.59); %Basophils 0.4 % (0.0-1.0); %Eosinophils 0.8 % (0.0-10.0); %Lymphocytes 9.7 % (21.0-51.0); %Monocytes 7.8 % (0.0-10.0); %Neutrophils 81.3 % (42.0-75.0); Hemoglobin 9.2 g/dL (14.0-18.0); Mean Corpuscular HGB CONC 32.1 g/dL (32.0-36.0); Mean Corpuscular Hemoglobin 26.6 pg (27.0-31.0); Mean Platelet Volume 6.3 fL (7.4-10.4); Platelet Count 376 thou/uL (130-400); RBC Distribution Width 15.9 % (11.5-14.5); Red Blood Cell (RBC) Count 3.46 mill/uL (4.70-6.10); White Blood Cell (WBC) Count 11.1 thou/uL (4.8-10.8)
[2017-12-09 11:58] LABS: Anion Gap 15 mmol/L (10-20); BUN (Urea Nitrogen) 6 mg/dL (8.4-25.7); Calc. Creatinine Clearance 71 mL/min (70-130); Calcium 9.2 mg/dL (7.8-10.44); Carbon Dioxide 21 mmol/L (23-31); Chloride 107 mmol/L (98-107); Estimated GFR-MDRD 72; Glucose 108 mg/dL (83-110); Potassium 3.5 mmol/L (3.5-5.1); Sodium 139 mmol/L (136-145)
--- NOTE | 2017-12-09 12:48 | PDOC.PN ---
- Subjective Encounter Start Date: 12/09/17 Encounter Start Time: 10:00 patient is seen today, alert and oriented. Explained to family, that his WBC is improving and Blood cultures remained neg second set, And further workup of his source of infection is pending. - Objective Resuscitation Status: Resuscitation Status FULL:Full Resuscitation MAR Reviewed: Yes Vital Signs & Weight: Vital Signs (12 hours) Temp Pulse Resp BP BP Pulse Ox 12/09/17 11:48 97.6 F 62 16 121/71 100 12/09/17 08:00 97.7 F 66 18 97 12/09/17 07:50 97.7 F 66 18 119/69 97 Weight Admit Weight 173 lb 1.6 oz Weight 173 lb 1.6 oz I&O: 12/08/17 12/09/17 12/10/17 05:59 06:59 06:59 Intake Total Balance Result Diagrams: 12/09/17 11:32 12/09/17 11:32 Radiology Reviewed by me: Yes Phys Exam - Physical Examination HEENT: PERRLA, moist MMs Neck: no nodes, no JVD Respiratory: no wheezing, no rales Cardiovascular: RRR, no significant murmur Gastrointestinal: soft, non-tender Musculoskeletal: no edema, pulses present Dx/Plan (1) Sepsis Code(s): A41.9 - SEPSIS, UNSPECIFIED ORGANISM Status: Acute Qualifiers: Sepsis type: Pseudomonas Qualified Code(s): A41.52 - Sepsis due to Pseudomonas Comment: Pseudomonas bacteremia, Will continue on Zosyn/ levofloxin and vancomycin, as pt is septic. Plan for further evalaution with WBC tagged scan, is pending. (2) Aortic aneurysm and dissection Code(s): I71.00 - DISSECTION OF UNSPECIFIED SITE OF AORTA Status: Acute Comment: Dr. Tirado Doesnt feel pt has Discetion. Will continue to follow and mingley Monitor and follow his recommedations. Second opinion from Radiology also feel pt has no evidence of discetion. (3) Anemia Code(s): D64.9 - ANEMIA, UNSPECIFIED Status: Acute Comment: No source of Bleeding, pt received Blood transfusion perDrAl Brink. as outpaitent, Now Hb is 10, will closley monitor. Will do Retic count, irone levels, Stool occult. Follow Gi recommedations. (4) GERD (gastroesophageal reflux disease) Code(s): K21.9 - GASTRO-ESOPHAGEAL REFLUX DISEASE WITHOUT ESOPHAGITIS Status: Acute Comment: Continue on protonix, Follow Gi recommedations, pt had funduplication per Dr. Brink note. (5) Hx of CABG Status: Acute Comment: Dr. Tirado on board, continue Asprin, BB now, No trop elevation, will order repeat EKG and Tropin for any chest pains. (6) Nausea & vomiting Code(s): R11.2 - NAUSEA WITH VOMITING, UNSPECIFIED Status: Acute Comment: resolved now, continue to monitor. (7) Endocarditis Code(s): I38 - ENDOCARDITIS, VALVE UNSPECIFIED Status: Suspected Qualifiers: Infective endocarditis organism: bacterial Comment: Planned for MARIE tomorrow to r/o Endocarditis. - Plan cont current plan of care, plan discussed w/ family, continue antibiotics, PT/OT , social sciences department chair, respiratory therapy, incentive spirometry, DVT proph w/ lovenox * . - Discharge Day Encounter end time: 10:35 Review of Systems - Review of Systems Constitutional: weakness Eyes: negative: Pain, Vision Change, Conjunctivae Inflammation, Eyelid Inflammation, Redness, Other ENT: negative: Ear Pain, Ear Discharge, Nose Pain, Nose Discharge, Nose Congestion, Mouth Pain, Mouth Swelling, Throat Pain, Throat Swelling, Other Respiratory: negative: Cough, Dry, Shortness of Breath, Hemoptysis, SOB with Excertion, Pleuritic Pain, Sputum, Wheezing Cardiovascular: chest pain. negative: palpitations, orthopnea, paroxysmal nocturnal dyspnea, edema, light headedness, other Gastrointestinal: negative: Nausea, Vomiting, Abdominal Pain, Diarrhea, Constipation, Melena, Hematochezia, Other Genitourinary: negative: Dysuria, Frequency, Incontinence, Hematuria, Retention , Other Musculoskeletal: negative: Neck Pain, Shoulder Pain, Arm Pain, Back Pain, Hand Pain, Leg Pain, Foot Pain, Other Skin: negative: Rash, Lesions, Ventura, Bruising, Other - Medications/Allergies Allergies/Adverse Reactions: Allergies Allergy/AdvReac Type Severity Reaction Status Date / Time No Known Allergies Allergy Verified 12/04/17 11:33 Medications: Current Medications Acetaminophen (Tylenol) 650 mg PO Q4H PRN PRN Reason: Headache/Fever or Pain Last Admin: 12/06/17 21:47 Dose: 650 mg Hydrocodone Bitart/Acetaminophen ([place] 5/325) 1 tab PO Q4H PRN PRN Reason: Moderate Pain (4-6) Last Admin: 12/09/17 06:02 Dose: 1 tab Aspirin (Ecotrin) 81 mg PO QAM COUNTS [facility]CLUDE 234 BEDS AT [facility] Last Admin: 12/09/17 09:07 Dose: 81 mg Colchicine (Colcrys) 0.6 mg PO DAILY PRN PRN Reason: GOUT PAIN Docusate Sodium (Colace) 100 mg PO BID [facility] 234 BEDS AT [facility] Last Admin: 12/09/17 09:08 Dose: Not Given Enoxaparin Sodium (Lovenox) 40 mg SC 0900 [facility]S [facility] 234 BEDS AT [facility] Last Admin: 12/09/17 09:07 Dose: 40 mg Gabapentin (Neurontin) 300 mg PO DAILY [facility]S [facility]CLUDE 234 BEDS AT [facility] Last Admin: 12/09/17 09:07 Dose: 300 mg Piperacillin Sod/Tazobactam (Sod 3.375 gm/ Sodium Chloride) 100 mls @ 200 mls/ hr IVPB Q6HR [facility]S [facility]CLUDE 234 BEDS AT THE [facility] Last Admin: 12/09/17 11:51 Dose: 100 mls Sodium Chloride (Normal Saline 0.9%) 1,000 mls @ 75 mls/hr IV .[id number] COUNTS INCLUDE 234 BEDS AT THE [facility] Last Admin: 12/09/17 09:06 Dose: 1,000 mls Levofloxacin 750 mg/ Device 150 mls @ 100 mls/hr IVPB 1700 [facility]S INCLUDE 234 BEDS AT [facility] Last Admin: 12/08/17 17:04 Dose: 150 mls Ondansetron HCl (Zofran Odt) 4 mg PO Q6H PRN PRN Reason: Nausea/Vomiting Ondansetron HCl (Zofran) 4 mg IVP Q6H PRN PRN Reason: Nausea/Vomiting Last Admin: 12/07/17 06:13 Dose: 4 mg Pantoprazole Sodium (Protonix) 40 mg IVP HS [facility]S [facility]CLUDE 234 BEDS AT [facility] Last Admin: 12/08/17 21:25 Dose: 40 mg Rosuvastatin Calcium (Crestor) [facility] [place] Admin: 12/09/17 09:07 Dose: 20 mg Sodium Chloride (Flush - Normal Saline) 10 ml IVF Q12HR [facility]S [facility]CLUDE 234 BEDS AT [facility] Last Admin: 12/09/17 09:08 Dose: Not Given Sodium Chloride (Flush - Normal Saline) 10 ml IVF PRN PRN PRN Reason: Saline Flush
--- NOTE | 2017-12-09 15:17 | PRG ---
DATE OF SERVICE: 12/09/2017 SUBJECTIVE: Still with the tenderness and soreness which he feels within the chest anteriorly in his own words below the sternum. No abdominal symptoms. No genitourinary symptoms, no joint symptoms. OBJECTIVE: VITAL SIGNS: The patient has remained afebrile. Other vital signs are normal. GENERAL: Awake, alert, oriented, mild to moderate tenderness mid sternal area. RESPIRATORY: Clear lungs. HEART: S1, S2, regular rate. ABDOMEN: Soft, not distended, not tender. EXTREMITIES: Moves extremities equally without any limitations. LABORATORY DATA: White cell count down to 11, platelets 376, hemoglobin 9.2. Sodium 139, creatinine 1.01. Microbiology with 1 out of 2 sets positive for Pseudomonas aeruginosa, susceptibilities demon strate the chapman susceptibility. 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 The patient is scheduled for Indium-labelled WBC scan and a MARIE and may need an MRI as well in additi on to that. The patient will need a PICC line placement and protracted treatment at least for 6 week s with Zosyn and oral quinolone.
[2017-12-09] MEDS: Pantoprazole 40 MG VIAL IVP SCH (20:31)
[2017-12-09] MEDS: Acetaminophen 325 MG TAB PO PRN (23:48)
[2017-12-10] MEDS: Piperacillin/Tazobactam 3.375 GM in Sodium Chloride 0.9% 100 ML IVPB SCH ×4 (05:01→23:58)
[2017-12-10 08:13] LABS: INR-International Normal Ratio 1.3; Prothrombin Time 16.5 SEC (12.0-14.7)
[2017-12-10] MEDS ORDERED: PROPOFOL 20 ML ONE (09:13)
[2017-12-10] MEDS ORDERED: Lidocaine Viscous Sol 2% 15 ml UD Cup ONE (09:13)
[2017-12-10] MEDS: Enoxaparin Sodium 40 MG/0.4 ML SYRINGE SC SCH (09:18)
[2017-12-10] MEDS: Docusate 100 MG CAP PO SCH ×2 (09:18→20:35)
--- NOTE | 2017-12-10 09:19 | PDOC.PN ---
- Subjective Encounter Start Date: 12/10/17 Encounter Start Time: 10:20 Subjective: Patient with continued soreness right sternum. No other complaints. No -: fever overnight that he noticed. Had MARIE this AM that was reportedly normal -: per family. Awaiting PICC placement. - Objective Resuscitation Status: Resuscitation Status FULL:Full Resuscitation MAR Reviewed: Yes Vital Signs & Weight: Vital Signs (12 hours) Temp Pulse Resp BP Pulse Ox 12/10/17 08:00 98.0 F 55 L 16 145/86 H 99 12/10/17 04:16 98.0 F 53 L 18 122/73 95 Weight Admit Weight 173 lb 1.6 oz Weight 173 lb 1.6 oz I&O: 12/09/17 12/10/17 12/11/17 06:59 06:59 06:59 Intake Total 2049 Balance 2049 Result Diagrams: 12/09/17 11:32 12/09/17 11:32 Phys Exam - Physical Examination Constitutional: NAD HEENT: moist MMs Respiratory: no wheezing, no rales, no rhonchi TTP right of sternum Cardiovascular: RRR, no significant murmur Gastrointestinal: soft, positive bowel sounds Neurological: non-focal, moves all 4 limbs Psychiatric: normal affect, A&O x 3 Dx/Plan (1) Bacteremia due to Gram-negative bacteria Code(s): R78.81 - BACTEREMIA Status: Acute Comment: Pseudomonas bacteremia, will need outpatient IV zosyn and oral FQ. Dr. Carreon following. (2) Aortic aneurysm and dissection Code(s): I71.00 - DISSECTION OF UNSPECIFIED SITE OF AORTA Status: Ruled-out Comment: Dr. Tirado doesn't feel pt has a disection. Will continue to follow and closely monitor and follow his recommedations. Second opinion from Radiology also feels pt has no evidence of disection. (3) Anemia Code(s): D64.9 - ANEMIA, UNSPECIFIED Status: Acute Comment: No source of Bleeding, pt received Blood transfusion perDr. Brink. as outpaitent, Now Hb is 10, will anabel monitor. Will do Retic count, irone levels, Stool occult. Follow Gi recommedations. (4) GERD (gastroesophageal reflux disease) Code(s): K21.9 - GASTRO-ESOPHAGEAL REFLUX DISEASE WITHOUT ESOPHAGITIS Status: Acute Comment: Continue on protonix, Follow Gi recommedations, pt had funduplication per Dr. Brink note. (5) Hx of CABG Status: Acute Comment: Dr. Tirado on board, continue Asprin, BB now, No trop elevation, will order repeat EKG and Tropin for any chest pains. - Plan cont current plan of care, continue antibiotics * . - Discharge Day Encounter end time: 10:40
--- NOTE | 2017-12-10 10:39 | OP ---
PREPROCEDURE DIAGNOSIS: Endocarditis. POST-PROCEDURE DIAGNOSIS: No indication of infection on the aortic valve. PROCEDURE PERFORMED: Transesophageal echocardiography. COMPLICATIONS: None. Conscious sedation performed with propofol. Anesthesia was present. The probe passed easily in the esophagus. There was significant artifact intermittently during the study which somewhat decreases t he sensitivity. FINDINGS: Overall LVEF is at 55%-60%. The mitral valve has no mass or vegetation present. Left atr ial appendage well visualized with no thrombus. Left atrium has no mass or vegetations present. The aortic valve is calcified with mild decreased excursion. No mass or vegetation present. Tricuspid valve also appears free of significant vegetations. IMPRESSION: 1. No mass or vegetation present on the aortic, mitral, tricuspid or pulmonic valve. 2. Slight decrease in sensitivity due to artifact.
[2017-12-10] MEDS: Aspirin 81 mg Enteric Coated Tablet PO SCH (11:15)
[2017-12-10] MEDS: Sodium Chloride 0.9% 1,000 ML IV SCH (12:22)
--- NOTE | 2017-12-10 12:47 | SPC ---
SONOGAPHIC GUIDED LEFT UPPER EXTREMITY PICC PLACEMENT: HISTORY: Sepsis. FINDINGS: After explaining the procedure and answering all questions, the left upper extremity was prepped and draped in the usual sterile fashion. Sterile technique, buffered local anesthesia, sonographic faviola nce, and a 22-gauge needle were used to carefully access the left cephalic vein. Standard technique was then used to place the tip of a 5 [place] single-lumen PICC so that the tip lies at the level of t he superior vena cava. The catheter was flushed and secured externally. The patient tolerated the p rocedure well and was returned in unchanged condition. IMPRESSION: Technically successful left upper extremity PICC placement. Catheter is now ready for use. POS: YESENIA
[2017-12-10] MEDS: Gabapentin 300 MG CAP PO SCH (14:28)
[2017-12-10] MEDS: Rosuvastatin 20 MG TAB PO SCH (14:28)
[2017-12-10] MEDS ORDERED: PROPOFOL 200 MG/20 ML VIAL ONE (16:59)
[2017-12-10] MEDS ORDERED: Lidocaine 2% MPF 10 ML AMP (For Epidural Use) ONE (16:59)
[2017-12-10] MEDS: Colchicine 0.6 MG TAB PO PRN (17:36)
[2017-12-10] MEDS: HYDROcodone/Acetaminophen 5/325 mg Tablet PO PRN (18:51)
[2017-12-10] MEDS: Pantoprazole 40 MG VIAL IVP SCH (20:34)
[2017-12-11] MEDS: HYDROcodone/Acetaminophen 5/325 mg Tablet PO PRN ×2 (00:06→18:42)
[2017-12-11] MEDS: Piperacillin/Tazobactam 3.375 GM in Sodium Chloride 0.9% 100 ML IVPB SCH ×3 (05:13→18:40)
[2017-12-11] MEDS: Sodium Chloride 0.9% 1,000 ML IV SCH (05:13)
[2017-12-11] MEDS: Docusate 100 MG CAP PO SCH ×3 (08:54→20:22)
[2017-12-11] MEDS: Enoxaparin Sodium 40 MG/0.4 ML SYRINGE SC SCH (08:54)
[2017-12-11] MEDS: Rosuvastatin 20 MG TAB PO SCH (08:54)
[2017-12-11] MEDS: Gabapentin 300 MG CAP PO SCH (08:54)
[2017-12-11] MEDS: Aspirin 81 mg Enteric Coated Tablet PO SCH ×2 (08:54→08:55)
[2017-12-11] MEDS: Colchicine 0.6 MG TAB PO PRN (12:43)
--- NOTE | 2017-12-11 15:59 | PDOC.PN ---
- Subjective Encounter Start Date: 12/11/17 Encounter Start Time: 11:00 -: old records requested/rev pt seen and examined, chart reviewed in its entirety, this is my first visit with this patient Stermotomy back in 08/2017. now with fever, chest pain, and pseudomonas in 1/2 cultures here. chapman-susceptible. On Zosyn, Flagyl Pt tolerating IV abx, PICC placed today. to nuc tomorrow for tagged WBC. If unrevealing, then planning for 6+ weeks IV antibiotics with Zosyn and Levoflox. no f/c, no n/V/d/c, no CP or sOB - Objective Resuscitation Status: Resuscitation Status FULL:Full Resuscitation MAR Reviewed: Yes Vital Signs & Weight: Vital Signs (12 hours) Temp Pulse Resp BP Pulse Ox 12/11/17 08:00 98.1 F 74 16 135/87 99 Weight Admit Weight 173 lb 1.6 oz Weight 173 lb 1.6 oz I&O: 12/10/17 12/11/17 12/12/17 06:59 06:59 06:59 Intake Total 2049 750 Balance 2049 750 Result Diagrams: 12/12/17 05:05 12/12/17 05:05 Radiology Reviewed by me: Yes EKG Reviewed by me: Yes Phys Exam - Physical Examination Constitutional: NAD HEENT: PERRLA, moist MMs, sclera anicteric, oral pharynx no lesions Neck: no nodes, no JVD, supple, full ROM Respiratory: no wheezing, no rales, no rhonchi, clear to auscultation bilateral Cardiovascular: RRR, no significant murmur, no rub Gastrointestinal: soft, non-tender, no distention, positive bowel sounds Musculoskeletal: no edema, pulses present sternum tender to palpation, no crepitus Neurological: non-focal, normal sensation, moves all 4 limbs Lymphatic: no nodes Psychiatric: normal affect, A&O x 3 Skin: no rash, normal turgor, cap refill <2 seconds Deviation from normal: PICC site c/d/I Dx/Plan (1) Anemia Code(s): D64.9 - ANEMIA, UNSPECIFIED Status: Chronic Qualifiers: Anemia type: unspecified type Qualified Code(s): D64.9 - Anemia, unspecified Comment: No source of Bleeding, pt received Blood transfusion perDr. Brink. as outpaitent, Now Hb is 10, will closley monitor. Will do Retic count, irone levels, Stool occult. Follow Gi recommedations. (2) Bacteremia due to Gram-negative bacteria Code(s): R78.81 - BACTEREMIA Status: Acute Comment: Pseudomonas bacteremia, will need outpatient IV zosyn and oral FQ. Dr. Carreon following. (3) Sepsis Code(s): A41.9 - SEPSIS, UNSPECIFIED ORGANISM Status: Acute Qualifiers: Sepsis type: Pseudomonas Qualified Code(s): A41.52 - Sepsis due to Pseudomonas Comment: Pseudomonas bacteremia, Will continue on Zosyn/ levofloxin and vancomycin, as pt is septic. Plan for further evalaution with WBC tagged scan, is pending. (4) Coronary artery disease Code(s): I25.10 - ATHSCL HEART DISEASE OF PILOT STATION CORONARY ARTERY W/O ANG PCTRS Status: Acute (5) Hx of CABG Status: Acute Comment: Dr. Tirado on board, continue Asprin, BB now, No trop elevation, will order repeat EKG and Tropin for any chest pains. (6) Hypokalemia Code(s): E87.6 - HYPOKALEMIA Status: Acute (7) Hypomagnesemia Code(s): E83.42 - HYPOMAGNESEMIA Status: Acute (8) Nausea & vomiting Code(s): R11.2 - NAUSEA WITH VOMITING, UNSPECIFIED Status: Acute Comment: resolved now, continue to monitor. - Plan * .
[2017-12-11] MEDS ORDERED: Potassium Chloride 20 MEQ TAB PO SCH ×2 (18:15)
[2017-12-11] MEDS ORDERED: Furosemide 20 MG/2 ML VIAL SLOW IVP SCH (18:15)
--- NOTE | 2017-12-11 18:23 | PRG ---
DATE OF SERVICE: 12/11/2017 SUBJECTIVE: Mr. Judd continues intravenous antibiotics. Overall, says he still does not feel well , has quite a bit of edema, has been receiving a lot of antibiotics. PHYSICAL EXAMINATION: VITAL SIGNS: Blood pressure here is 135/87, pulse 74 and regular. LUNGS: Clear. CARDIAC: Normal S1, normal S2. ABDOMEN: Soft, nontender. EXTREMITIES: There is moderate to severe ankle edema. ASSESSMENT: 1. Fever and infection being treated and evaluated. 2. Normal left ventricular function. 3. Previous bypass. PLAN: 1. Would stop IV fluid. 2. Single dose of furosemide and potassium.
--- NOTE | 2017-12-11 18:46 | PRG ---
DATE OF SERVICE: 12/11/2017 SUBJECTIVE: Awake, alert, oriented. Still with the same pain in the anterior chest area radiating t o the back, now has developed gout and/or what appears to be gout in the right first MPJ. No abdomin al pain, no diarrhea. OBJECTIVE: VITAL SIGNS: T-max 99.0, currently 98, blood pressure 130/87, pulse 74, respirations 16, O2 sat 99%. GENERAL: Appears no distress, awake, alert, oriented. LUNGS: Clear. CARDIOVASCULAR: S1, S2 with a soft murmur at the aortic area. ABDOMEN: Soft and not distended. MUSCULOSKELETAL: Right inflamed, swollen and tender, right first MPJ. ASSESSMENT: Coronary artery disease, bypass graft surgery, parotid tumor in remission. Pseudomonas aeruginosa bacteremia with the abnormalities on CT scan suggestive of possible aortitis. DISCUSSION: Indium labeled scan pending. Continue Zosyn and quinolone for a protracted period of ti me. Follow up CT findings down the road.
[2017-12-11] MEDS: Pantoprazole 40 MG VIAL IVP SCH (20:26)
[2017-12-12] MEDS: Piperacillin/Tazobactam 3.375 GM in Sodium Chloride 0.9% 100 ML IVPB SCH ×4 (00:38→17:58)
[2017-12-12 05:28] LABS: #Eosinphils 0.1 thou/uL (0.0-0.7); #Neutrophils 8.8 thou/uL (1.40-6.50); %Basophils 0.3 % (0.0-1.0); %Eosinophils 0.7 % (0.0-10.0); %Lymphocytes 9.1 % (21.0-51.0); %Monocytes 9.4 % (0.0-10.0); %Neutrophils 80.5 % (42.0-75.0); Hemoglobin 8.7 g/dL (14.0-18.0); Mean Corpuscular HGB CONC 32.1 g/dL (32.0-36.0); Mean Corpuscular Hemoglobin 27.1 pg (27.0-31.0); Mean Corpuscular Volume 84.4 fl (80.0-94.0); Mean Platelet Volume 6.5 fL (7.4-10.4); Platelet Count 365 thou/uL (130-400); RBC Distribution Width 16.2 % (11.5-14.5); White Blood Cell (WBC) Count 10.9 thou/uL (4.8-10.8)
[2017-12-12 05:47] LABS: Anion Gap 13 mmol/L (10-20); BUN (Urea Nitrogen) 5 mg/dL (8.4-25.7); Calc. Creatinine Clearance 77 mL/min (70-130); Calcium 9.4 mg/dL (7.8-10.44); Carbon Dioxide 23 mmol/L (23-31); Chloride 105 mmol/L (98-107); Estimated GFR-MDRD 79; Glucose 91 mg/dL (83-110); Magnesium 1.4 mg/dL (1.6-2.6); Potassium 3.7 mmol/L (3.5-5.1); Sodium 137 mmol/L (136-145)
[2017-12-12] MEDS: HYDROcodone/Acetaminophen 5/325 mg Tablet PO PRN ×3 (06:12→20:42)
[2017-12-12] MEDS ORDERED: Magnesium 2 GM/NS 0.9% 100 ML 3 GM in Premix Bag 1 BAG IVPB SCH (07:15)
[2017-12-12] MEDS ORDERED: Magnesium Sulfate 3 GM, Admixture Fee 1 EACH in Sodium Chloride 0.9% 100 ML IVPB SCH (07:30)
[2017-12-12] MEDS: Enoxaparin Sodium 40 MG/0.4 ML SYRINGE SC SCH (07:54)
[2017-12-12] MEDS: Rosuvastatin 20 MG TAB PO SCH (07:54)
[2017-12-12] MEDS: Aspirin 81 mg Enteric Coated Tablet PO SCH (07:54)
[2017-12-12] MEDS: Docusate 100 MG CAP PO SCH ×2 (07:55→19:10)
[2017-12-12] MEDS: Gabapentin 300 MG CAP PO SCH (07:55)
[2017-12-12] MEDS: Colchicine 0.6 MG TAB PO PRN ×2 (07:55→20:42)
--- NOTE | 2017-12-12 12:14 | PDOC.PN ---
- Subjective Encounter Start Date: 12/12/17 Encounter Start Time: 10:40 Pt feeling okay, sternum still sore. NO F/C, no N/V/D/c, eating well. To Nuc later today for tagged WBC scan. 10 point ROs performed and neg for all systems except as per HPI pt approved for home IV antibiotics with [place] - Objective Resuscitation Status: Resuscitation Status FULL:Full Resuscitation MAR Reviewed: Yes Vital Signs & Weight: Vital Signs (12 hours) Temp Pulse Resp BP Pulse Ox 12/12/17 08:00 97.7 F 70 18 152/91 H 98 Weight Admit Weight 173 lb 1.6 oz Weight 173 lb 1.6 oz I&O: 12/11/17 12/12/17 12/13/17 06:59 06:59 06:59 Intake Total 750 2120 240 Balance 750 2120 240 Result Diagrams: 12/12/17 05:05 12/12/17 05:05 Radiology Reviewed by me: Yes EKG Reviewed by me: Yes Phys Exam - Physical Examination Constitutional: NAD HEENT: PERRLA, moist MMs, sclera anicteric, oral pharynx no lesions Neck: no nodes, no JVD, supple, full ROM Respiratory: no wheezing, no rales, no rhonchi, clear to auscultation bilateral Cardiovascular: RRR, no significant murmur, no rub Gastrointestinal: soft, non-tender, no distention, positive bowel sounds Musculoskeletal: pulses present, edema present Neurological: non-focal, normal sensation, moves all 4 limbs Lymphatic: no nodes Psychiatric: normal affect, A&O x 3 Skin: no rash, normal turgor, cap refill <2 seconds Dx/Plan (1) Anemia Code(s): D64.9 - ANEMIA, UNSPECIFIED Status: Chronic Qualifiers: Anemia type: unspecified type Qualified Code(s): D64.9 - Anemia, unspecified Comment: No source of Bleeding, pt received Blood transfusion perDr. Brink. as outpaitent, Now Hb is 10, will closley monitor. Will do Retic count, irone levels, Stool occult. Follow Gi recommedations. (2) Bacteremia due to Gram-negative bacteria Code(s): R78.81 - BACTEREMIA Status: Acute Comment: Pseudomonas bacteremia, will need outpatient IV zosyn and oral FQ. Dr. Carreon following. (3) Sepsis Code(s): A41.9 - SEPSIS, UNSPECIFIED ORGANISM Status: Acute Qualifiers: Sepsis type: Pseudomonas Qualified Code(s): A41.52 - Sepsis due to Pseudomonas Comment: Pseudomonas bacteremia, Will continue on Zosyn/ levofloxin and vancomycin, as pt is septic. Plan for further evalaution with WBC tagged scan, is pending. (4) Coronary artery disease Code(s): I25.10 - ATHSCL HEART DISEASE OF [place] CORONARY ARTERY W/O ANG PCTRS Status: Acute (5) Hx of CABG Status: Acute Comment: Dr. Tirado on board, continue Asprin, BB now, No trop elevation, will order repeat EKG and Tropin for any chest pains. (6) Hypokalemia Code(s): E87.6 - HYPOKALEMIA Status: Resolved (7) Hypomagnesemia Code(s): E83.42 - HYPOMAGNESEMIA Status: Acute Comment: replaced (8) Nausea & vomiting Code(s): R11.2 - NAUSEA WITH VOMITING, UNSPECIFIED Status: Acute Comment: resolved now, continue to monitor. - Plan cont current plan of care, plan discussed w/ family, continue antibiotics, PT/OT , out of bed/ambulate * .
--- NOTE | 2017-12-12 15:36 | NM ---
WHOLE BODY INDIUM 111 LABELED WBC SCAN: HISTORY: Fever, bacteremia, chest pain. RADIOPHARMACEUTICAL: 0.5 mCi Indium 111 labeled WBCs injected intravenously followed by 24 hour delayed imaging. FINDINGS: There is physiologic activity in the liver, spleen, and bone marrow. No abnormal areas of tracer loca lization are otherwise seen. IMPRESSION: No evidence of abscess formation. POS: C
[2017-12-12] MEDS: Pantoprazole 40 MG VIAL IVP SCH (20:42)
[2017-12-13] MEDS: Piperacillin/Tazobactam 3.375 GM in Sodium Chloride 0.9% 100 ML IVPB SCH ×3 (00:10→11:36)
[2017-12-13] MEDS: HYDROcodone/Acetaminophen 5/325 mg Tablet PO PRN ×2 (01:08→05:44)
[2017-12-13] MEDS: Rosuvastatin 20 MG TAB PO SCH (08:22)
[2017-12-13] MEDS: Enoxaparin Sodium 40 MG/0.4 ML SYRINGE SC SCH (08:22)
[2017-12-13] MEDS: Docusate 100 MG CAP PO SCH (08:23)
[2017-12-13] MEDS: Gabapentin 300 MG CAP PO SCH (08:23)
[2017-12-13] MEDS: Aspirin 81 mg Enteric Coated Tablet PO SCH (08:23)
[2017-12-13 09:23] VITALS: BP 143/87; TEMP 97.2
[2017-12-13] MEDS ORDERED: Heparin 1,000 UNITS/ML VIAL ONE (13:50)
--- NOTE | 2017-12-13 16:07 | DIS ---
PRIMARY CARE PHYSICIAN: Dr. Markell Anglin. PRIMARY INFECTIOUS DISEASE DOCTOR: Dr. Wiley Carreon. DATE OF ADMISSION: 12/05/2017 DATE OF DISCHARGE: 12/13/2017 DISCHARGE DIAGNOSES: 1. Pseudomonas bacteremia. 2. 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 3. Presumed sternal wound infection. 4. Monitoring for long-term current antibiotic use. 5. Atherosclerotic heart disease without angina. 6. Sepsis. 7. Essential hypertension. 8. History of esophageal pouch/Zenker's diverticulum. CONSULTATIONS: 1. GI, Dr. Christopher Brink, 12/05/2017. 2. Finn Tirado with Cardiothoracic Surgery, 12/05/2017. 3. Wiley Carreon, 12/06/2017. PROCEDURES: 1. Esophagogastroduodenoscopy for recurrent vomiting, recurrent anemia and previous hiatal hernia re pair. 2. On 12/10/2017, Interventional Radiology placed left lower extremity PICC line. 3. On 12/11/2017, nuclear tagged white blood cell scan showed no evidence of abscess. 4. Transesophageal echocardiogram by Wiley Phillip on 12/10/2017. HISTORY AND PHYSICAL: Mr. Judd is a 72-year-old white male with the above history who presents to the emergency department on the day of admission 12/05/2017 with complains of fever. He has a histor y of coronary artery disease status post cardiac bypass done in 08/2017 and was doing fine about one week prior to admission. He started having persistent chest pain and soreness in the right side of h is chest certainly worse with movement. He started having fevers, chills and rigors. The patient went to see Dr. Brink for evaluation and plans were made for EGD, but because of the ers, Dr. Brink decided to have the patient admitted instead. He was directly admitted to the hospit al from Dr. Brink' office. HOSPITAL COURSE: The patient was accepted and seen by Dr. Ricky Amador and admitted to the hospital. The patient was closely monitored. He was started on empiric antibiotic with Zosyn 3.375 grams IV q .6 hours and blood cultures were obtained. Dr. Brink was consulted and Dr. Carreon was consulted for possible infection of unknown location. The patient was seen by Dr. Finn Tirado on 12/05/2017 due to fever and recent surgery. Incisions a ppeared to be clean, dry, and intact and no erythema and he followed from a distance. Patient was se en by Dr. Brink who made arrangements for the patient to have a CT scan of the abdomen and pelvis. Overnight 12/05/2017 to 12/06/2017, patient did undergo CT of the chest, abdomen and pelvis. This re vealed an aneurysm dilatation of the ascending thoracic aorta and small pockets of contrast outside t he lumen, suggesting a possible aortic ulceration or short segment dissection. He had a hypodensity in the lateral aspect of the spleen, hiatal hernia with an area of fat and peripheral enhancement, po ssible focal fat necrosis. The patient otherwise had remained afebrile. He was seen by Dr. Carreon lat er on 12/06/2017. The patient was continued on Zosyn. Levaquin that he has been on intermittently w as discontinued and blood cultures were followed. By 12/07/2017, patient had blood culture positive for Pseudomonas aeruginosa with pending susceptibil ities. Levaquin was restarted, and Dr. Carreon was concerned about aortitis or endocarditis. Indium-l abeled white blood cell scan was ordered and plans were made for him to have long-term antibiotics. On 12/08/2017, Pseudomonas returned as chapman-susceptible. He was continued on Zosyn and levofloxacin. He remained stable through 12/09/2017. At that time, he was revisited by Dr. Carreon, who recommended MARIE and white blood cell scan. Arrangements were made and on 12/10/2017, the patient underwent MARIE that was negative for abscess or evidence of endocarditis, the patient underwent PICC line placed on 12/10/2017, case investigator began to work on outpatient antibiotics. I took over the case on 12/11/2017, patient has blood drawn for the indium-labeled white blood cell s can and subsequently had the rest of the skin done on 12/12/2017. Results today showed a negative scan for evidence of occult abscess. Antibiotics were arranged at [facility] with IV Zosyn and oral Levaquin and the patient was otherwise stable on 12/13/2017 for discharge w ith outpatient followup. The patient was seen and examined at discharge. DISCHARGE PLAN: Disposition was discussed with the patient and his face to face at the bedside. DISCHARGE MEDICATIONS: 1. Zosyn 3.375 grams IV q.6 hours for 6-8 weeks. These will be administered by [place] and followed b y [facility] home health care. The patient will have weekly labs drawn and follow up with Dr. Carreon. 2. Aspirin 81 mg daily. 3. Colchicine 0.6 mg p.o. daily. 4. Nexium 40 mg p.o. at bedtime. 5. Gabapentin 300 mg daily. 6. Hydrocodone 5/325 one tab p.o. q.4 hours p.r.n., prescription for 30 tablets given to the patient . 7. Levofloxacin 750 mg p.o. daily. Prescription sent. 8. Zofran 4 mg p.o. q.6 hours p.r.n. 9. Crestor 20 mg p.o. q.a.m. 10. Aldactazide 25/25 one tablet p.o. daily. 11. Zantac 150 mg p.o. daily. DISCHARGE CONDITION: Stable. DISPOSITION: He will be discharged home via private vehicle with home health care with [facility] for 6 -8 weeks of IV antibiotics. FOLLOWUP APPOINTMENTS: 1. Dr. Carreon in 1-2 weeks. 2. Primary care physician within a week. 3. Weekly CBC, CMP, sed rate, CRP. DISCHARGE ACTIVITY: Per cardiopulmonary limits. No lifting more than 10 pounds with his PICC line a rm. DISCHARGE DIET: Heart healthy recommended.
== END 2017-12-13 12:57 | disposition home or self-care (01) | DRG 862 ==
LOC: T4-B 13:55
PROVIDERS: ADMIT Internal Medicine Gastroenterology; ATTEND Internal Medicine
PROC: 0DJ08ZZ Inspection of Upper Intestinal Tract, Via Natural or Artificial Opening Endoscopic (ICD-10-PCS; principal; 2017-12-07)
PROC: 02HV33Z Insertion of Infusion Device into Superior Vena Cava, Percutaneous Approach (ICD-10-PCS; 2017-12-10)
PROC: B24BZZ4 Ultrasonography of Heart with Aorta, Transesophageal (ICD-10-PCS; 2017-12-10)
PROC: CW1 Nuclear Medicine, Anatomical Regions, Planar Nuclear Medicine Imaging (ICD-10-PCS; 2017-12-12)
DX: T81.4XXA Infection following a procedure, initial encounter (principal); A41.52 Sepsis due to Pseudomonas; D63.8 Anemia in other chronic diseases classified elsewhere; I77.6 Arteritis, unspecified; E83.42 Hypomagnesemia; E78.5 Hyperlipidemia, unspecified; I10 Essential (primary) hypertension; I25.10 Atherosclerotic heart disease of native coronary artery without angina pectoris; Z95.1 Presence of aortocoronary bypass graft; R11.10 Vomiting, unspecified; K21.0 Gastro-esophageal reflux disease with esophagitis; Z85.89 Personal history of malignant neoplasm of other organs and systems; Z92.3 Personal history of irradiation; Z79.2 Long term (current) use of antibiotics; E87.6 Hypokalemia
CPT/HCPCS: 36415; 36430; 36569; 71045; 71260; 74177; 78806; 80048; 80053; 80202; 81001; 83540; 83550; 83735; 84145; 84443; 85007; 85025; 85027; 85046; 85060; 85610; 85652; 86140; 86780; 86850; 86900; 86901; 87040; 87077; 87081; 87086; 87149; 87186; 90471; 90682; 93312; A4216; A4641; A9547; C1751; C9113; G0008; G8978-GP-CI; G8979-GP-CI; G8980-GP-CI; G8987-GO-CH; G8988-GO-CH; G8989-GO-CH; J1644; J1650; J1940; J1956; J2001; J2405; J2543; J2704; J3370; J3475; J7050; P9016; P9040; Q2036

== ENCOUNTER 2018-04-21 13:40 | Emergency (ER) | payer MEDICARE ==
[2018-04-21 14:05] LABS: Bilirubin Small (Negative); Blood, Urine Negative (Negative); Clarity Slightly Cloudy (Clear); Glucose, Urine (Dipstick) Negative (Negative); Leukocyte Negative (Negative); Nitrite Negative (Negative); Protein, Urine (Dipstick) 30 mg/dL (Neg-Trace); Specific Gravity, Urine 1.025 (1.005-1.030); Urobilinogen 0.2 mg/dL (0.2-1.0); pH, Urine 5.5 (5.0-9.0)
[2018-04-21 14:06] LABS: Hyaline Casts/LPF 0-3 HYALINE CAST LPF (0-3 Hyaline); RBC/HPF 0-3 HPF (0-3); Squamous Epithelial 0-3 HPF (0-3); WBC/HPF 0-3 HPF (0-3)
[2018-04-21 14:31] LABS: #Basophils 0.1 thou/uL (0.0-0.2); #Eosinphils 0.1 thou/uL (0.0-0.7); #Lymphocytes 0.6 thou/uL (1.20-3.40); #Monocytes 0.5 thou/uL (0.11-0.59); %Eosinophils 0.9 % (0.0-10.0); %Lymphocytes 7.6 % (21.0-51.0); %Monocytes 6.2 % (0.0-10.0); %Neutrophils 84.2 % (42.0-75.0); Hemoglobin 11.2 g/dL (14.0-18.0); Mean Corpuscular HGB CONC 35.1 g/dL (32.0-36.0); Mean Corpuscular Hemoglobin 28.9 pg (27.0-31.0); Mean Corpuscular Volume 82.3 fL (78.0-98.0); Platelet Count 230 thou/uL (130-400); RBC Distribution Width 13.2 % (11.5-14.5); Red Blood Cell (RBC) Count 3.86 mill/uL (4.70-6.10); White Blood Cell (WBC) Count 8.3 thou/uL (4.8-10.8)
[2018-04-21 14:43] LABS: Anion Gap 16 mmol/L (10-20); BUN (Urea Nitrogen) 19 mg/dL (8.4-25.7); Calc. Creatinine Clearance 0 mL/min (70-130); Calcium 9.9 mg/dL (7.8-10.44); Carbon Dioxide 19 mmol/L (23-31); Chloride 104 mmol/L (98-107); Estimated GFR-MDRD 66; Glucose 151 mg/dL (83-110); Potassium 4.1 mmol/L (3.5-5.1); Sodium 135 mmol/L (136-145)
--- NOTE | 2018-04-21 15:38 | RAD ---
PA AND LATERAL OF THE CHEST: INDICATION: Chills and fever. FINDINGS: The lungs are clear. There is stable cardiomegaly when compared to a CT of the chest, abdomen, and p leanne dated 12/06/17. No pleural effusion or pneumothorax is evident. No acute osseous abnormality is evident. Midline sternotomy changes and post-CABG change is similar. IMPRESSION: Stable cardiomegaly. POS: YESENIA
== END 2018-04-21 15:55 | disposition home or self-care (01) ==
LOC: SCSER 13:40
DX: E86.0 Dehydration (principal); I10 Essential (primary) hypertension; I25.10 Atherosclerotic heart disease of native coronary artery without angina pectoris; D64.9 Anemia, unspecified; Z79.899 Other long term (current) drug therapy; Z79.82 Long term (current) use of aspirin
CPT/HCPCS: 36415; 71046; 80048; 81003; 81015; 83605; 85025; 87040; 87077; 87086; 87149; 87186; 96360

== ENCOUNTER 2018-04-23 10:07 | Emergency (ER) | payer MEDICARE ==
[2018-04-23 11:29] LABS: Hemoglobin 10.5 g/dL (14.0-18.0); Mean Corpuscular HGB CONC 33.9 g/dL (32.0-36.0); Mean Corpuscular Hemoglobin 29.9 pg (27.0-31.0); Mean Platelet Volume 6.3 fL (7.4-10.4); Platelet Count 253 thou/uL (130-400); RBC Distribution Width 14.1 % (11.5-14.5); Red Blood Cell (RBC) Count 3.52 mill/uL (4.70-6.10); White Blood Cell (WBC) Count 7.9 thou/uL (4.8-10.8)
[2018-04-23 11:51] LABS: ALT (SGPT) 45 U/L (8-55); AST (SGOT) 34 U/L (5-34); Albumin 3.9 g/dL (3.4-4.8); Alkaline Phosphatase 159 U/L (40-150); Anion Gap 12 mmol/L (10-20); BUN (Urea Nitrogen) 12 mg/dL (8.4-25.7); Bilirubin, Total 0.4 mg/dL (0.2-1.2); Calc. Creatinine Clearance 0 mL/min (70-130); Calcium 9.9 mg/dL (7.8-10.44); Carbon Dioxide 22 mmol/L (23-31); Chloride 105 mmol/L (98-107); Estimated GFR-MDRD 72; Globulin 3.1 g/dL (2.4-3.5); Glucose 111 mg/dL (83-110); Potassium 4.4 mmol/L (3.5-5.1); Sodium 135 mmol/L (136-145)
[2018-04-23 11:52] LABS: Band 18 % (5-11); Eosinophils 1 % (0-10); Lymphocytes 12 % (21-51); MDiff Complete? YES; Monocytes 9 % (0-10); Neutrophil 59 % (42-75); PLT Morphology Comment Appears Adequate; Polychromasia SLIGHT = 2-3 cells (100X) (0-2/hpf)
[2018-04-23] MEDS ORDERED: Cefepime 2 GM in Sodium Chloride 0.9% 100 ML IVPB ONE (12:00)
[2018-04-23 12:17] LABS: Bilirubin Negative (Negative); Blood, Urine Negative (Negative); Clarity CLEAR (Clear); Glucose, Urine (Dipstick) Negative (Negative); Leukocyte Negative (Negative); Nitrite Negative (Negative); Protein, Urine (Dipstick) Negative (Neg-Trace); Specific Gravity, Urine 1.007 (1.002-1.036); Urobilinogen 0.2 mg/dL (0.2-1.0)
--- NOTE | 2018-04-23 12:28 | CT ---
CT ARTERIOGRAM CHEST WITH IV CONTRAST AND 3D MIP IMAGING CT ARTERIOGRAM ABDOMEN WITH IV CONTRAST AND 3D MIP IMAGING: History: Worsening chest pain. Aortitis with ulceration. Comparison: 12-06-17 FINDINGS: Aneurysmal dilatation of the ascending aorta now measures 8.1 cm width x 7.9 cm depth where it was pr eviously 6.2 x 5.9 cm. Mucosal flap at the lateral wall of the ascending aorta now results in a focal area of dissection. Focal penetrating ulceration of the slightly thickened anterior wall of the asce nding aorta results in ulcerations of 1.4 cm more inferiorly and 2.3 cm at the right side of the aort ic arch. Good contrast flow is present into the great vessels with normal branching. No significant p ericardial fluid or pleural fluid. Hiatal hernia and reflux and post-operative changes of the mediast inum are again demonstrated. Gallbladder is surgically absent. There is calcification throughout the abdominal aorta. 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 Mesenteric arteries and renal arteries are patent with scattered calcification. Cys ts arise from the cortex of the right kidney. Gallbladder is surgically absent. IMPRESSION: 1. 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 2. Penetrating ulceration projecting anteriorly on the ascending aorta has progressed also. The actua l inflammation has decreased. 3. Atherosclerosis. 4. Hiatal hernia. 5. Chronic type findings are otherwise stable. Findings were called to Dr. Fontaine in the Emergency Department at 1150 hours. Code CR POS: [facility]
[2018-04-23] MEDS ORDERED: Esmolol 2,500 MG/250 ML 250 ML ONE (12:48)
[2018-04-23] MEDS ORDERED: ISOVUE-370 76%-LOCM 1 ML ONE (14:50)
== END 2018-04-23 13:17 | disposition short-term general hospital (02) ==
LOC: ERS 10:07
DX: I71.02 Dissection of abdominal aorta (principal); R78.81 Bacteremia; I10 Essential (primary) hypertension; I25.10 Atherosclerotic heart disease of native coronary artery without angina pectoris; D64.9 Anemia, unspecified; Z79.899 Other long term (current) drug therapy; Z79.82 Long term (current) use of aspirin
CPT/HCPCS: 36415; 36416; 71275; 80053; 81003; 85025; 87040; 87077; 87086; 87149; 96365; J0692; J7050

== ENCOUNTER 2019-01-27 13:18 | Outpatient (CLI) | payer MEDICARE ==
[2019-01-27 15:05] LABS: Hemoglobin 12.6 g/dL (14.0-18.0); Mean Corpuscular HGB CONC 33.5 g/dL (32.0-36.0); Mean Corpuscular Hemoglobin 31.1 pg (27.0-31.0); Mean Platelet Volume 7.2 fL (7.4-10.4); Platelet Count 202 thou/uL (130-400); RBC Distribution Width 12.9 % (11.5-14.5); Red Blood Cell (RBC) Count 4.06 mill/uL (4.70-6.10); White Blood Cell (WBC) Count 6.3 thou/uL (4.8-10.8)
[2019-01-27 15:30] LABS: Anion Gap 12 mmol/L (10-20); BUN (Urea Nitrogen) 20 mg/dL (8.4-25.7); Calc. Creatinine Clearance 0 mL/min (70-130); Calcium 9.8 mg/dL (7.8-10.44); Carbon Dioxide 23 mmol/L (23-31); Chloride 107 mmol/L (98-107); Estimated GFR-MDRD 57; Glucose 92 mg/dL (83-110); Potassium 4.3 mmol/L (3.5-5.1); Sodium 138 mmol/L (136-145)
== END 2019-01-27 13:19 | disposition home or self-care (01) ==
LOC: LABBT 13:18
PROVIDERS: ATTEND Thoracic Surgery (Cardiothoracic Vascular Surgery)
DX: Z01.818 Encounter for other preprocedural examination (principal); I65.21 Occlusion and stenosis of right carotid artery
CPT/HCPCS: 80048; 85027; 93005; 93010

== ENCOUNTER 2019-01-28 14:00 | Inpatient (IN) | payer MEDICARE ==
[2019-01-29] MEDS ORDERED: Protamine Sulfate 50 MG/5 ML VIAL ONE (06:33)
[2019-01-29] MEDS ORDERED: CEFAZOLIN 1 GM VIAL ONE ×2 (06:33→14:36)
[2019-01-29] MEDS ORDERED: Heparin 5,000 UNITS/ML VIAL ONE (06:33)
[2019-01-29] MEDS ORDERED: Sodium Chloride 0.9% 100 ML ONE ×2 (06:33→14:36)
[2019-01-29] MEDS ORDERED: Fentanyl 100 MCG/2 ML VIAL ONE ×2 (06:34→16:07)
[2019-01-29] MEDS ORDERED: Midazolam HCl 2 mg/2 ml Vial ONE (06:34)
[2019-01-29] MEDS ORDERED: Vecuronium 10 MG VIAL ONE (07:57)
[2019-01-29] MEDS ORDERED: Bupivacaine HCl 0.5%/Epinephrine 1:200,000/PF 30 ml Vial ONE (07:57)
[2019-01-29] MEDS ORDERED: Ondansetron HCl/PF 4 MG/2 ML Vial IVP PRN (08:28)
--- NOTE | 2019-01-29 09:44 | RAD ---
Exam: Chest one view: HISTORY: Central line placement COMPARISON: 12/05/2017 FINDINGS: Postop midline sternotomy. Right central line placed without pneumothorax. Increased blunting the lef t costophrenic angle, possibly small effusion. Less inspiration.. Borderline heart size. IMPRESSION: Right central line placement without pneumothorax. Increased density in the left costophrenic angle, possible small pleural effusion.. Postop changes.
--- NOTE | 2019-01-29 13:11 | OP ---
DATE OF PROCEDURE: 01/29/2019 PREOPERATIVE DIAGNOSIS: Asymptomatic right carotid stenosis. POSTOPERATIVE DIAGNOSIS: Asymptomatic right carotid stenosis. PROCEDURES PERFORMED: Right carotid endarterectomy. It was apparent at that point that the IV had infiltrated and it was a very difficult stick. We elected to place a right subclavian central line. ANESTHESIA: General endotracheal - Dr. Fredo Garcia ESTIMATED BLOOD LOSS: Less than 50. DESCRIPTION OF PROCEDURE: After consent was obtained, the patient was brought to the operating room and placed in supine position on the operating room table. Appropriate central line was placed. The right chest was prepped and draped in usual sterile fashion. 1% lidocaine was used to anesthetize the faustina-clavicular area. Percutaneous access to the right subclavian vein was obtained and using modified Seldinger technique, a 7-Colombian central line was placed. Line was secured with 2-0 silk. The line aspirated and flushed nicely. The patient was then placed under general anesthesia. Head was rotated to the left and right neck prepped and draped in usual sterile fashion. Neck was extended and joints appropriately padded and supported. Skin incision was made along the anterior border of the sternocleidomastoid. Dissection through the platysma was taken with electrocautery. The facial vein branches were divided x2 between clips and ties. The carotid sheath was entered. Common, internal, and external carotid arteries were carefully dissected free. 7500 units of heparin total were given. After 3 minutes, the common, internal, and external carotid arteries were clamped. An incision was made on the common carotid artery extended through the bulb distal to the internal carotid plaque. The plaque was very cheesy in nature. Due to this, I elected to do the endarterectomy without placing the shunt. The cerebral oximetry dropped less than 10%. After endarterectomy was completed, medial fibers were debrided. The artery was flushed with heparinized saline. The artery was then closed in a running fashion with 6-0 Prolene suture. Arteries were back bled and flushed with heparinized saline. The suture line was completed and tied. Antegrade flow was reestablished at the external carotid artery. Ten seconds later, antegrade flow was reestablished up the internal carotid artery. Protamine was administered. Hemostasis was ensured. Wounds were copiously irrigated, closed in layers and Dermabond applied to the skin. The patient was awakened and neurologically intact in the operating room. The patient was transferred to the Recovery Room and later Intensive Care Unit in stable condition. Job ID: [id number]
[2019-01-29] MEDS: CEFAZOLIN 1 GM in Premix Bag 1 BAG IVPB SCH ×2 (15:00→23:57)
[2019-01-29] MEDS ORDERED: Fentanyl 100 MCG/2 ML VIAL SLOW IVP PRN (15:01)
[2019-01-29] MEDS ORDERED: Promethazine HCl 25 MG/ML VIAL IM PRN (15:01)
[2019-01-29] MEDS ORDERED: Ondansetron PF 4 MG/2 ML Vial IVP PRN (15:01)
[2019-01-29] MEDS ORDERED: Acetaminophen 325 MG TAB PO PRN (15:01)
[2019-01-29] MEDS ORDERED: Ondansetron ODT 4 MG TAB PO PRN (15:01)
[2019-01-29] MEDS ORDERED: Nitroglycerin 50 MG/250 ML BOT 250 ML IVPB PRN (15:01)
[2019-01-29] MEDS ORDERED: Phenylephrine 10 MG/NS 250 ML 250 ML IVPB PRN (15:01)
[2019-01-29] MEDS ORDERED: HYDROcodone/Acetaminophen 5/325 mg Tablet PO PRN (15:01)
[2019-01-29] MEDS ORDERED: hydrALAZINE 20 MG/ML VIAL SLOW IVP PRN (15:01)
[2019-01-29] MEDS: Sodium Chloride 0.9% 1,000 ML IV SCH (16:14)
[2019-01-29] MEDS: hydrALAZINE 25 MG TAB PO SCH ×2 (16:29→20:37)
[2019-01-29 16:30] VITALS: BP 139/57
[2019-01-29] MEDS ORDERED: Hydrochlorothiazide 25 MG TAB PO SCH (17:00)
[2019-01-29 17:45] VITALS: BMI 27.2
[2019-01-29] MEDS: HYDROcodone/Acetaminophen 5/325 mg Tablet PO PRN (20:42)
[2019-01-29] MEDS ORDERED: Colchicine 0.3 MG TAB PO SCH (21:00)
[2019-01-29] MEDS ORDERED: Famotidine 20 MG TAB PO SCH (21:00)
[2019-01-29] MEDS ORDERED: Carvedilol 6.25 MG TAB PO SCH (21:00)
[2019-01-29] MEDS ORDERED: Rosuvastatin 20 MG TAB PO SCH (21:00)
[2019-01-30] MEDS: Sodium Chloride 0.9% 1,000 ML IV SCH (00:03)
[2019-01-30] MEDS: HYDROcodone/Acetaminophen 5/325 mg Tablet PO PRN (02:49)
[2019-01-30 02:55] VITALS: TEMP 98.6
--- NOTE | 2019-01-30 05:54 | DIS ---
DATE OF ADMISSION: 01/29/2019 DATE OF DISCHARGE: 01/30/2019 DIAGNOSIS: Asymptomatic right carotid stenosis. PROCEDURE PERFORMED: Right carotid endarterectomy. DESCRIPTION OF HOSPITAL STAY: Mr. Judd was brought in for elective carotid endarterectomy. He has done well and being discharged to home. He is neurologically intact. DISCHARGE MEDICATIONS: Unchanged. Job ID: [id number]
[2019-01-30] MEDS ORDERED: Torsemide 10 MG TAB PO SCH (09:00)
[2019-01-30] MEDS ORDERED: Potassium Chloride 20 MEQ TAB PO SCH (09:00)
[2019-01-30] MEDS ORDERED: Aspirin 325 mg Enteric Coated Tablet PO SCH (09:00)
[2019-01-30] MEDS ORDERED: Spironolactone 25 MG TAB PO SCH (17:00)
== END 2019-01-30 09:06 | disposition home or self-care (01) | DRG 27 ==
LOC: SURG A 01-29 05:50 → CCU 01-29 17:04
PROVIDERS: ADMIT Thoracic Surgery (Cardiothoracic Vascular Surgery); ATTEND Thoracic Surgery (Cardiothoracic Vascular Surgery)
PROC: 03CK3ZZ Extirpation of Matter from Right Internal Carotid Artery, Percutaneous Approach (ICD-10-PCS; principal; 2019-01-29)
DX: I65.21 Occlusion and stenosis of right carotid artery (principal); I25.10 Atherosclerotic heart disease of native coronary artery without angina pectoris; I10 Essential (primary) hypertension; E78.5 Hyperlipidemia, unspecified; M10.9 Gout, unspecified; M19.90 Unspecified osteoarthritis, unspecified site; Z79.82 Long term (current) use of aspirin; Z95.1 Presence of aortocoronary bypass graft; Z88.1 Allergy status to other antibiotic agents; Z79.899 Other long term (current) drug therapy
CPT/HCPCS: 71045; 80048; 85027; 93005; 93010; 94640; J0670; J0690; J1642; J1644; J2250; J2405; J2720; J3010; J3490; J7620

== ENCOUNTER 2023-08-03 12:46 | Day surgery (SDC) | payer MEDICARE ==
[2023-07-12 15:02] VITALS: BMI 31.4
[~2023-08-03 12:46] MED LIST changes: -Iopamidol 370 76% 100 ML VIAL ONE; +Lidocaine 1% PF 5 ML VIAL ONE; +Ondansetron PF 4 MG/2 ML Vial ONE; +PHENYLEPHRINE-NS 100 MCG/ML 10 ML SYRINGE ONE; +PROPOFOL 200 MG/20 ML VIAL ONE; +ePHEDrine Sulfate 50 MG/10 ML VIAL ONE
== END 2023-08-03 14:30 | disposition home or self-care (01) ==
LOC: SDC 12:46
PROVIDERS: ATTEND Internal Medicine Gastroenterology
PROC: 0DBH8ZZ Excision of Cecum, Via Natural or Artificial Opening Endoscopic (ICD-10-PCS; principal; 2023-08-03)
PROC: 0DBL8ZZ Excision of Transverse Colon, Via Natural or Artificial Opening Endoscopic (ICD-10-PCS; 2023-08-03)
PROC: 0DBC8ZZ Excision of Ileocecal Valve, Via Natural or Artificial Opening Endoscopic (ICD-10-PCS; 2023-08-03)
DX: D12.0 Benign neoplasm of cecum (principal); D12.3 Benign neoplasm of transverse colon; K64.8 Other hemorrhoids; K62.5 Hemorrhage of anus and rectum; Z86.010 Personal history of colon polyps; I25.10 Atherosclerotic heart disease of native coronary artery without angina pectoris; I10 Essential (primary) hypertension; E78.00 Pure hypercholesterolemia, unspecified; Z95.4 Presence of other heart-valve replacement; Z95.1 Presence of aortocoronary bypass graft; Z79.82 Long term (current) use of aspirin; Z79.899 Other long term (current) drug therapy
CPT/HCPCS: 71045; 88305; J2405; J2704